=== PATIENT | female | born 1985 | race Caucasian/White ===

== ENCOUNTER → 2020-07-30 11:33 | Outpatient (CLI) | payer SELFPAY ==
[2020-07-30 13:31] LABS: Absolute Lymphocyte Count 1.46 X10^3/uL (0.83-4.51); Absolute Neutrophil Count 6.1 X10^3/uL (2.0-7.7); Basophil# 0.03 X10^3/uL; Basophil% 0.4 % (0-1); Eosinophil# 0.02 X10^3/uL; Eosinophils% 0.2 % (0-5); Hematocrit 38.3 % (37-47); Hemoglobin 12.8 g/dL (12.0-15.0); Lymphocyte # 1.46 X10^3/ul (4.0); Lymphocyte % 18.1 % (19-41); Mean Corp Hgb Conc 33.4 g/dL (32-36); Mean Corpuscular Hgb 29.4 pg (27.0-32.0); Mean Corpuscular Volume 87.8 fL (81-99); Mean Platelet Vol. 10.4 fl (6.2-12.0); Monocyte# 0.46 X10^3/uL; Monocyte% 5.7 % (0-10); NRBC Flagged by Analyzer 0 % (0-5); Neutrophil # 6.09 X10^3/uL (2.7-7.7); Neutrophil % 75.4 % (47-70); Platelet Count 271 K/mm3 (150-450); RBC Distribution Width CV 12.1 % (11.6-14.6); RBC Distribution Width SD 38.7 fl (35.1-43.9); Red Blood Count 4.36 M/mm3 (4.2-5.4); White Blood Count 8.1 K/mm3 (4.4-11.0)
[2020-07-30 13:36] LABS: Color, Urine Yellow (Yellow); Glucose, Dipstick Normal (Normal); Ketone-Dipstick Negative (Negative); Leukocyte Esterase-Dipstick Negative /ul (Negative); Nitrite-Dipstick Negative (Negative); Occult Blood-Urine Negative /ul (Negative); Protein-Dipstick Negative (Negative); Specific Gravity, Urine 1.015 (1.002-1.030); Urine Bilirubin Dipstick Negative (Negative); Urine Clarity Sl. Cloudy (Clear); Urine Urobilinogen Normal (Normal)
[2020-07-30 14:28] LABS: HIV - WCH Non-Reactive (Nonreactive); Hepatitis B Surface Antigen Non-Reactive (Nonreactive); Hepatitis C Antibody Non-Reactive (Nonreactive); Rubella IgG Reactive (Nonreactive)
[2020-08-01 20:09] LABS: Chlamydia By Nucleic Acid AMP Negative (Negative)
[2020-08-01 21:07] LABS: HPV APTIMA, High Risk Negative (Negative)
[2020-08-01 21:44] LABS: Gonococcus By Nucleic Acid AMP Negative (Negative)
[2020-08-02 02:34] LABS: Prenatal RPR NONREACTIVE (NONREACTIVE)
== END ==
PROVIDERS: Visit Provider Student in an Organized Health Care Education/Training Program
DX: Z34.81 Encounter for supervision of other normal pregnancy, first trimester (principal); Z12.4 Encounter for screening for malignant neoplasm of cervix; Z11.3 Encounter for screening for infections with a predominantly sexual mode of transmission
CPT/HCPCS: 36415; 81002; 85025; 86703; 86762; 86803; 87086; 87340; 87491; 87591; 87624; 88175; G0145

== ENCOUNTER → 2020-11-05 10:48 | Outpatient (CLI) | payer SELFPAY ==
[2020-11-05 13:18] LABS: Hematocrit 36.8 % (37-47); Hemoglobin 11.8 g/dL (12.0-15.0); Mean Corp Hgb Conc 32.1 g/dL (32-36); Mean Corpuscular Hgb 29.3 pg (27.0-32.0); Mean Corpuscular Volume 91.3 fL (81-99); Mean Platelet Vol. 10.1 fl (6.2-12.0); Platelet Count 287 K/mm3 (150-450); RBC Distribution Width CV 13.1 % (11.6-14.6); RBC Distribution Width SD 43.8 fl (35.1-43.9); Red Blood Count 4.03 M/mm3 (4.2-5.4); White Blood Count 9.7 K/mm3 (4.4-11.0)
[2020-11-05 13:24] LABS: Glucose Challenge Gest 1H 50g 74 mg/dL (70-140)
== END ==
PROVIDERS: Visit Provider Student in an Organized Health Care Education/Training Program
DX: Z34.82 Encounter for supervision of other normal pregnancy, second trimester (principal)
CPT/HCPCS: 36415; 82950; 85027

== ENCOUNTER → 2021-01-29 | Outpatient (CLI) | payer SELFPAY | END | disposition home or self-care (01) | LOC: LABSPEC 12:28 | PROVIDERS: PCP Physician Assistant; Visit Provider Student in an Organized Health Care Education/Training Program | DX: Z36.85 Encounter for antenatal screening for Streptococcus B (principal) | CPT/HCPCS: 87081 ==

== ENCOUNTER 2021-02-20 05:05 | Inpatient (IN) | payer SELFPAY ==
[2021-02-20] VITALS (16 sets, daily range): BP systolic 99–140; BP diastolic 54–89; PULSE 81–100; RESP 15–20; TEMP 36.1–36.8; O2SAT 94–98; BMI 34.7
--- NOTE | 2021-02-20 | FALS_PTH ---
PATIENT: DIANA MATAMOROS LOC: [facility] U#:[id number] AGE/SX: 35/F ROOM: [facility] RE02/20/[address]: Dr. Martha Saxena, : 1985 BED: 1 DIS: 02/22/2021 SPEC #: [id number] RECD: 02/20/21 12:00 STATUS: HENRIETTA CAMPOS #: [id number] MINNA: 02/20/21 00:[address]: Martha Saxena DEPT: SURGICAL PATHOLOGY RECD BY: Tyrone Alvares ENTERED: 02/20/21 12:01 SP TYPE: FALL TUBES OTHR DR: NOLAN Shay Tissues: Fallopian tube Procedures: Surgery Specimen Level II HEADER OPERATION: Tubal ligation PRE-OP DIAGNOSIS: Sterilization TISSUE SUBMITTED: Fallopian tubes MICROSCOPIC DIAGNOSIS Bilateral fallopian tubes, salpingectomy: Bilateral fallopian tubes, no pathologic diagnosis. SHIRAZ:carolyne 02/21/2021 MICROSCOPIC DESCRIPTION Slides are reviewed. GROSS DESCRIPTION Received in fixative is one container labeled with the patient's name and designated bilateral fallopian tubes, stitch left. The specimen consists of bilateral fallopian tubes including fimbrial ends. The right fallopian tube measures 6.5 cm in length and up to 1 cm in diameter and left fallopian tube measures 7 cm in length and up to 1 cm in diameter. Sections reveal unremarkable cut surfaces. Sausage Wrapper sections are submitted in two cassettes as follows: 1 ? right fallopian tube, 2 ? left fallopian tube. / SHIRAZ:carolyne 02/20/21 TC:4 CPT: 56299 x2
[2021-02-20] MEDS: Lactated Ringers 1,000 ML 999 ML IV (05:30)
[2021-02-20 05:39] LABS: Absolute Lymphocyte Count 1.77 X10^3/uL (0.83-4.51); Absolute Neutrophil Count 6.3 X10^3/uL (2.0-7.7); Basophil# 0.03 X10^3/uL; Basophil% 0.3 % (0-1); Eosinophil# 0.03 X10^3/uL; Eosinophils% 0.3 % (0-5); Hematocrit 37.5 % (37-47); Hemoglobin 12.6 g/dL (12.0-15.0); Lymphocyte # 1.77 X10^3/ul (0.83-4.51); Lymphocyte % 20.5 % (19-41); Mean Corp Hgb Conc 33.6 g/dL (32-36); Mean Corpuscular Hgb 29.2 pg (27.0-32.0); Mean Corpuscular Volume 86.8 fL (81-99); Mean Platelet Vol. 11.1 fl (6.2-12.0); Monocyte# 0.48 X10^3/uL; Monocyte% 5.6 % (0-10); NRBC Flagged by Analyzer 0 % (0-5); Neutrophil % 73.1 % (47-70); Platelet Count 232 K/mm3 (150-450); RBC Distribution Width CV 13.9 % (11.6-14.6); Red Blood Count 4.32 M/mm3 (4.2-5.4); White Blood Count 8.6 K/mm3 (4.4-11.0)
[2021-02-20] MEDS: Acetaminophen 500 MG Tablet 1000 MG PO ×3 (06:02→20:42)
[2021-02-20] MEDS: Lactated Ringers 1,000 ML 150 ML IV (06:35)
[2021-02-20] MEDS: Sodium Citrate/Citric Acid 30 ML UDC PO (07:12)
--- NOTE | 2021-02-20 07:13 | PCM.HP.OB ---
HPI - General General Date of Admission: 02/20/21 HPI Narrative 35 yo at 39/3w, LONG 02/24/21 by LMP, admitted for repeat section and bilateral tubal ligation. Denies leaking fluid, vaginal bleeding, contractions. Reports movement. Denies headache, vision changes, chest pain, shortness of breath, nausea or vomiting, diarrhea or constipation, fevers or chills. complicated by: Advanced maternal age PFSH PFSH Home Medications doxylamine succinate [Unisom (doxylamine)] 12.5 mg PO PRN PRN 02/20/21 [History Last Taken 02/18/21 21:00] [id number] [] 1 tab PO DAILY 02/20/21 [History Last Taken 02/19/21 21:00] Allergy/AdvReac Type Severity Reaction Status Date / Time No Known Allergies Allergy Verified 02/20/21 05:23 Surgical History Previous section Social History (Updated 02/20/21 @ 07:[address] Martha Saxena, ) Smoking Status: Never smoker alcohol intake: never substance use type: does not use History 4 Elective abortions Hx Para 2 Spontaneous abortions 1 Hx # Term Pregnancies 2 Ectopic pregnancies Hx # Pregnancies Multiple births # of living children ROS Constitutional Constitutional: Reports systems reviewed and no addt'l complaints, except as documented Eyes Eyes: Reports systems reviewed and no addt'l complaints, except as documented ENT HEENT: Reports systems reviewed and no addt'l complaints, except as documented Cardiovascular Cardiovascular: Reports systems reviewed and no addt'l complaints, except as documented Respiratory/Chest Respiratory/Chest: Reports systems reviewed and no addt'l complaints, except as documented Gastrointestinal Gastrointestinal: Reports systems reviewed and no addt'l complaints, except as documented Genitourinary Genitourinary: Reports systems reviewed and no addt'l complaints, except as documented Musculoskeletal Musculoskeletal: Reports systems reviewed and no addt'l complaints, except as documented Integumentary Integumentary: Reports systems reviewed and no addt'l complaints, except as documented Neurologic Neurologic: Reports systems reviewed and no addt'l complaints, except as documented Psychiatric Psychiatric: Reports systems reviewed and no addt'l complaints, except as documented Endocrine Endocrinology: Reports systems reviewed and no addt'l complaints, except as documented Hematologic/Lymphatic Hematologic/Lymphatic: Reports systems reviewed and no addt'l complaints, except as documented Allergic/Immunologic Allergic/Immunologic: Reports systems reviewed and no addt'l complaints, except as documented Vital Signs Vital Signs Vital Signs: 02/20/21 05:47 Temperature 98.2 F Temperature Source Temporal Pulse Rate 100 Respiratory Rate 18 Blood Pressure 140/89 H Blood Pressure Mean 106 Blood Pressure Source Monitor Blood Pressure Position Semi-Fowlers Blood Pressure Location Left Arm Pulse Ox 97 Oxygen Delivery Method Room Air Weight Weight: 88.904 kg Body Mass Index (BMI) 34.7 Physical Exam Const alert, oriented x3 and no apparent distress HEENT normocephalic Head and Scalp: atraumatic Eyes PERRL Neck full ROM Resp normal respiratory effort and clear to auscultation bilaterally Cardio regular rate and regular rhythm GI normal to inspection, nondistended, normoactive bowel sounds Inspection: gravid Extremity no pedal edema Skin no rashes or lesions noted Neuro no focal motor deficits and no sensory deficits noted Psych mental status grossly normal and affect normal Labs Labs Labs: Blood Type A POSITIVE Antibody Screen NEGATIVE Hct 37.5 % (37-47) Hgb 12.6 g/dL (12.0-15.0) Rubella IgG Antibody Reactive (Nonreactive) Hep Bs Antigen Non-Reactive (Nonreactive) Neisseria gonorrhoeae DNA (ELIO) Negative (Negative) HIV 1&2 Antibody Non-Reactive (Nonreactive) Glucose 1 Hr 50 gm 74 mg/dL (70-140) Assessment & Plan (1) : PLAN: 35-year-old G4, P2 at 39/3 weeks admitted for repeat section bilateral tubal ligation. Complicated by advanced maternal age. Routine orders. (2) Advanced maternal age (AMA) in :
[2021-02-20] MEDS: Cefazolin 2 GM in 0.9% Normal Saline 100 ML IV (07:21)
--- NOTE | 2021-02-20 08:33 | OP.PCM_ITS ---
Details Operative Information Date of Procedure: 02/20/21 Pre-Operative Diagnosis: Suh intrauterine , Desires permanent sterilization Post-Operative Diagnosis: Suh intrauterine , Desires permanent sterilization Indications Narrative: 35-year-old G4, P2 for repeat section and bilateral tubal ligation. All risk, benefits, alternatives were discussed with patient. Risks include but are not limited to: Risk of bleeding to the point of transfusion, infection, injury to surrounding tissue including bowel or bladder, VTE, ICU admission. Additionally risk of regret with tubal sterilization. Patient aware and consented. Classification: Scheduled Antibiotic Given: Ancef 2 grams IV x1 Estimated Blood Loss: 700cc Fluids Replaced: 1000cc Findings Description of Procedure: Patient taken to operating room spinal anesthesia placed. Patient placed in supine position with a left lateral tilt. Pfannenstiel skin incision made with scalpel and carried down through subcutaneous tissue. Fascia nicked on either side of the midline, extended bilaterally. Separation of rectus muscle noted inferiorly with herniation of peritoneum. Melanie clamps placed on the superior fascial edge which was tented up and underlying rectus muscles were dissected off bluntly and sharply at midline using Gomez scissors. Melanie clamps moved to inferior fascial edge which was tented up and underlying muscles were dissected off in a similar fashion, taking care to avoid adhesions. Hemostats grasped peritoneum superiorly and peritoneum entered with Metzenbaum scissors. Dissected inferiorly using Metzenbaum scissors. Extended bluntly. Bladder blade placed. Vesicouterine peritoneum identified and bladder flap created with Metzenbaum scissors. Low transverse uterine incision made with scalpel, uterine cavity entered bluntly and extended, meconium fluid. Hand placed into the uterus and had elevated, with the assistance of gentle fundal pressure head delivered followed by body. Nuchal cord x1 loose, reduced. Cord clamped and cut, baby handed to nursing. Manual extraction of placenta. Uterus exteriorized and cleared of all clots with a lap. Hysterotomy closed with a running locking stitch second vertical imbricating stitch, 1 [id number]-pt-lsivh placed for hemostasis. Right fallopian tube identified From cornua to fimbriated end grasped with 2 [place] clamps. Removed using LigaSure device. Hemostatic. Left fallopian tube grasped with Mylene clamps and removed with LigaSure device, hemostatic. Uterus replaced into the abdominal cavity, hysterotomy hemostatic. Peritoneum closed with a running stitch. Fascia closed with running stitch. Subcutaneous tissue closed with interrupted stitches. Skin closed with running subcuticular stitch. At the end of the procedure all needle, lap, sponge counts were correct x3. UOP: 250cc clear urine Specimen(s) Sent to Pathology: None (1 minute): 8 (5 minute): 9 Complications Complications: None
--- NOTE | 2021-02-20 08:41 | PCM.DC ---
Discharge Instructions Diet Discharge Diet: No restrictions Activity Discharge Activity: Return to Normal Activity and May Shower May resume sexual activity in: 4-6 weeks Weight Bearing Status: Weight bearing as tolerated Lifting Restrictions: 20-25 lb Dressing / Incision Call your doctor if your incision/area has: Continuous Slow Oozing and Increased Redness Call your doctor if you observe: Fever of 101 or Higher, Inability to urinate, Using more than 1 pad per hour, Shortness of breath, Dizziness, Fainting spells, Swelling in the ankles, Chest pain and Calf discomfort Remove Dressing in: 5 days Cleanse incision/area with: Soap & Water Follow Up Care Please Follow Up With: Martha Saxena DO When: 2 week telehealth, 6 week Test Results: Test results from this visit will be discussed in further detail at your follow-up appointment, if applicable. Discharge Plan Admission Admit Date/Time: 02/20/21 05:05 Attending Provider: Martha Saxena Primary Care Provider: Alina Ibarra Discharge Orders/Prescriptions Prescriptions: New oxycodone 5 mg Tablet 5 mg PO Q6H PRN (Reason: pain) 5 Days Qty: 20 RF: 0 Continued ejaltowm-clb-Jd-FA 1 mg Tablet 1 tab PO DAILY RF: 0 Discontinued Unisom (doxylamine) 25 mg Tablet 12.5 mg PO PRN PRN (Reason: nausea) RF: 0 Referrals / Follow Up: Alina Ibarra PA [Primary Care Provider] - Disposition Disposition (needs filled in before D/C Order can be placed): Home, Self Care
[2021-02-20] MEDS: Oxytocin 30 units/NS 500 ml 30 UNITS/500 ML IV.SOLN 167 UNITS IV (08:55)
[2021-02-20] MEDS: Ketorolac 30 MG/ML Syringe IV ×3 (09:27→20:42)
[2021-02-20] MEDS: 0.9% Saline Lock 10 ML Syringe IV (09:29)
[2021-02-20 09:50] LABS: Pathology Specimen OB SEE PATHOLOGY REPORT
--- NOTE | 2021-02-20 09:51 | NURSING ---
[id number]
[2021-02-20] MEDS: Lactated Ringers 1,000 ML 100 ML IV (12:02)
[2021-02-20] MEDS: Ondansetron 4 MG/2 ML Vial IV (12:14)
--- NOTE | 2021-02-20 19:20 | NURSING ---
Lopez still in at this time, along with IV fluids running due to concentrated urine and earlier vomiting. Tolerating po fluids at this time denies nausea. Shift report given to Petra DOTY
[2021-02-20] MEDS: Enoxaparin 40 MG/0.4 ML Syringe SC (20:41)
[2021-02-21 00:08] VITALS: BP 92/42; PULSE 77; RESP 18; O2SAT 95
[2021-02-21] MEDS: Acetaminophen 500 MG Tablet 1000 MG PO ×4 (02:26→20:21)
[2021-02-21] MEDS: Ketorolac 30 MG/ML Syringe IV (02:26)
[2021-02-21 05:00] VITALS: BP 107/53; PULSE 87; RESP 18; TEMP 36.4
[2021-02-21 05:26] LABS: Hematocrit 30.5 % (37-47); Hemoglobin 10.2 g/dL (12.0-15.0); Mean Corp Hgb Conc 33.4 g/dL (32-36); Mean Corpuscular Hgb 29.6 pg (27.0-32.0); Mean Corpuscular Volume 88.4 fL (81-99); Mean Platelet Vol. 10.2 fl (6.2-12.0); Platelet Count 218 K/mm3 (150-450); RBC Distribution Width CV 14.3 % (11.6-14.6); RBC Distribution Width SD 45.5 fl (35.1-43.9); Red Blood Count 3.45 M/mm3 (4.2-5.4); White Blood Count 13.7 K/mm3 (4.4-11.0)
--- NOTE | 2021-02-21 06:42 | PCM.PN.OB ---
Subjective Subjective She is sore and has painfulness with transferring. OOB, ambulating and voiding without difficulty. Passing flatus. Tolerates PO. Denies heavy lochia. She is . Objective Data Objective Data Vital Signs: Vital Signs Temp Pulse Resp BP Pulse Ox 96.9 F L 82 16 119/76 98 02/22/21 11:52 02/22/21 11:52 02/22/21 11:52 02/22/21 11:52 02/22/21 07:53 Oxygen Delivery Method Room Air Weight: 88.904 kg Body Mass Index (BMI) 34.7 Intake & Output: Intake and Output for Last 24 Hours 02/20/21 02/21/21 02/22/21 23:59 23:59 23:59 Intake Total 4060 / 4060 Output Total 800 / 1300 1900 / 1900 Balance 3260 / 2760 -1900 / -1900 Lab / Micro Data Result Diagrams: 02/21/21 05:10 Micro: Microbiology 02/20/21 05:30 Mucosa - Nose SARS-CoV-2 Antigen (Rapid) - Final Physical Exam Const alert, oriented x3 and no apparent distress Resp normal respiratory effort, normal air movement and clear to auscultation bilaterally Cardio regular rate, regular rhythm, S1 normal heart sound and S2 normal heart sound GI normal to inspection, nondistended, normoactive bowel sounds, soft to palpation, non-tender and non-distended GI Narrative: incisional dressing c/d/i Manual OB Exam: other lochia scant Uterus Palpation: uterus fundus firm Extremity no calf tenderness Assessment & Plan (1) Delivery by section: COMMENT: POD#1 s/p RLTCS PLAN: Routine postop care
[2021-02-21 07:35] VITALS: BP 107/48; PULSE 86; RESP 16; TEMP 36.2; O2SAT 97
[2021-02-21] MEDS: Senna/Docusate Sodium 1 Tablet PO (07:49)
[2021-02-21] MEDS: Ibuprofen 600 MG Tablet PO ×2 (12:06→17:40)
[2021-02-21 12:10] VITALS: BP 118/72; PULSE 88; RESP 18; TEMP 36.4; O2SAT 98
[2021-02-21 16:59] VITALS: BP 116/68; PULSE 82; RESP 16; TEMP 36.4; O2SAT 96
[2021-02-21 20:15] VITALS: BP 118/70; PULSE 89; RESP 18; TEMP 36.2; O2SAT 98
[2021-02-21] MEDS: oxyCODONE 5 MG Tablet PO (21:19)
[2021-02-22] MEDS: Ibuprofen 600 MG Tablet PO ×3 (00:31→11:47)
[2021-02-22] MEDS: Acetaminophen 500 MG Tablet 1000 MG PO ×2 (01:40→08:09)
[2021-02-22] MEDS: oxyCODONE 5 MG Tablet PO ×2 (02:32→08:09)
[2021-02-22 02:34] VITALS: BP 109/73; PULSE 73; RESP 18; TEMP 36.1
[2021-02-22 07:53] VITALS: BP 127/65; PULSE 77; RESP 16; TEMP 36.2; O2SAT 98
--- NOTE | 2021-02-22 09:06 | PCM.DC.SUM ---
Providers Date of Admission: 02/20/21 Primary Care Physician: NOLAN Shay Reason For Visit: REPEAT Diagnosis Discharge Diagnosis (1) Delivery by section: Status: Acute Medications at Discharge Home Medications oxycodone 5 mg PO Q6H PRN 5 Days #20 tab 02/20/21 pzruikqn-fcb-Ry-FA 1 tab PO DAILY 02/20/21 ibuprofen 600 mg PO Q8H PRN PRN #30 tab 02/22/21 Hospital Course Operations section Physical Exam Const alert, oriented x3 and no apparent distress Resp normal respiratory effort, normal air movement and clear to auscultation bilaterally Cardio regular rate, regular rhythm, S1 normal heart sound and S2 normal heart sound GI normal to inspection, nondistended, normoactive bowel sounds, soft to palpation, non-tender and non-distended Manual OB Exam: other lochia scant Uterus Palpation: uterus fundus firm Extremity no calf tenderness Extremity Narrative: trace LE edema Weight / BMI Weight Weight: 88.904 kg Body Mass Index (BMI) 34.7 ABG / Lab / Microbiology Data Result Diagrams: 02/21/21 05:10 Microbiology: Microbiology 02/20/21 05:30 Mucosa - Nose SARS-CoV-2 Antigen (Rapid) - Final D/C Instructions Discharge Diet: No restrictions May resume sexual activity in: 4-6 weeks Weight Bearing Status: Weight bearing as tolerated Call your doctor if your incision/area has: Continuous Slow Oozing and Increased Redness Call your doctor if you observe: Fever of 101 or Higher, Inability to urinate, Using more than 1 pad per hour, Shortness of breath, Dizziness, Fainting spells, Swelling in the ankles, Chest pain and Calf discomfort Cleanse incision/area with: Soap & Water Please Follow Up With: Martha Saxena, DO When: 2 week telehealth, 6 week Meaningful Use Info Meaningful Use Diagnoses (Choose all that apply): None applicable Discharge Plan Admission Admit Date/Time: 02/20/21 05:05 Primary Reason for Your Visit: section Attending Provider: Martha Saxena Primary Care Provider: Alina Ibarra Instructions Patient Instructions: C Section Dc Discharge Orders/Prescriptions Prescriptions: New oxycodone 5 mg Tablet 5 mg PO Q6H PRN (Reason: pain) 5 Days Qty: 20 RF: 0 ibuprofen 600 mg Tablet 600 mg PO Q8H PRN PRN (Reason: pain) Qty: 30 RF: 0 Continued fxguixdf-tei-Gi-FA 1 mg Tablet 1 tab PO DAILY RF: 0 Discontinued Unisom (doxylamine) 25 mg Tablet 12.5 mg PO PRN PRN (Reason: nausea) RF: 0 Referrals / Follow Up: Alina Ibarra PA [Primary Care Provider] - Disposition Disposition (needs filled in before D/C Order can be placed): Home, Self Care
[2021-02-22] MEDS: Enoxaparin 40 MG/0.4 ML Syringe SC (11:47)
[2021-02-22] MEDS: Senna/Docusate Sodium 1 Tablet PO (11:48)
[2021-02-22 11:52] VITALS: BP 119/76; PULSE 82; RESP 16; TEMP 36.1
== END 2021-02-22 12:10 | disposition home or self-care (01) | DRG 785 ==
PROVIDERS: Admitting Provider Student in an Organized Health Care Education/Training Program; PCP Physician Assistant; Referring Provider Student in an Organized Health Care Education/Training Program; Visit Provider Student in an Organized Health Care Education/Training Program
PROC: 10D00Z1 Extraction of Products of Conception, Low, Open Approach (ICD-10-PCS; CPT 59514; principal; 2021-02-20 07:15)
DX: O65.5 Obstructed labor due to abnormality of maternal pelvic organs (principal); O34.211 Maternal care for low transverse scar from previous cesarean delivery; O69.81X0 Labor and delivery complicated by cord around neck, without compression, not applicable or unspecified; Z3A.39 39 weeks gestation of pregnancy; Z37.0 Single live birth; Z30.2 Encounter for sterilization
CPT/HCPCS: 85025; 85027; 86850; 86900; 86901; 87426; 88302; 99218; 99251; J7120; A4216; G0378; G0463; J2405

== ENCOUNTER 2021-02-24 17:25 | Inpatient (IN) | payer SELFPAY ==
[2021-02-20 05:22] VITALS: BMI 34.7
[2021-02-24] VITALS (85 sets, daily range): BP systolic 130–162; BP diastolic 68–90; PULSE 58–85; RESP 15–20; TEMP 36.6–36.9; O2SAT 85–100; BMI 32.5
[2021-02-24 16:53] LABS: Absolute Lymphocyte Count 0.95 X10^3/uL (0.83-4.51); Absolute Neutrophil Count 7.9 X10^3/uL (2.0-7.7); Basophil# 0.02 X10^3/uL; Basophil% 0.2 % (0-1); Eosinophil# 0.01 X10^3/uL; Eosinophils% 0.1 % (0-5); Hematocrit 33.7 % (37-47); Hemoglobin 11.4 g/dL (12.0-15.0); Lymphocyte # 0.95 X10^3/ul (0.83-4.51); Lymphocyte % 10.1 % (19-41); Mean Corp Hgb Conc 33.8 g/dL (32-36); Mean Corpuscular Hgb 29.5 pg (27.0-32.0); Mean Corpuscular Volume 87.1 fL (81-99); Mean Platelet Vol. 9.5 fl (6.2-12.0); Monocyte# 0.47 X10^3/uL; NRBC Flagged by Analyzer 0 % (0-5); Neutrophil # 7.92 X10^3/uL (2.7-7.7); Neutrophil % 84.3 % (47-70); Platelet Count 291 K/mm3 (150-450); RBC Distribution Width CV 13.8 % (11.6-14.6); RBC Distribution Width SD 44.2 fl (35.1-43.9); Red Blood Count 3.87 M/mm3 (4.2-5.4); White Blood Count 9.4 K/mm3 (4.4-11.0)
[2021-02-24 17:08] LABS: Bacteria 0 SEEN /hpf (None Seen); Mucous, Urine 0 SEEN /hpf (<or=2+)
[2021-02-24 17:10] LABS: ALB/GLOB Ratio 0.6 RATIO (0.9-2.4); AST(SGOT) 109 U/L (15-37); Alanine Aminotransfer ALT/SGPT 142 U/L (13-56); Albumin, Serum 2.6 g/dL (3.2-5.0); Alkaline Phosphatase 114 U/L (45-117); Amylase 32 U/L (25-115); Anion Gap 12 (5-15); BUN 46 mg/dL (7-18); BUN/Creat Ratio 11.6 RATIO (10-20); Calcium,Total 8.2 mg/dL (8.5-10.1); Chloride 107 mmol/L (98-107); Creatinine, Serum 3.96 mg/dL (0.55-1.02); EST Glomerular Filtration Rate 14 mL/min (>60); Est Glom Filt Rate - Afr Amer 16 mL/min (>60); Estimated Creatinine Clearance 16.25 ml/min; Globulin 4.1 g/dL (2.2-4.2); Glucose 93 mg/dL (74-106); Lipase 35 U/L (73-393); Potassium 4.2 mmol/L (3.5-5.1); Protein, Total 6.7 g/dL (6.4-8.2); Sodium Level 138 mmol/L (136-145)
[2021-02-24 17:12] LABS: Color, Urine Yellow (Yellow); Glucose, Dipstick Normal (Normal); Ketone-Dipstick Negative (Negative); Leukocyte Esterase-Dipstick 100 /ul (Negative); Nitrite-Dipstick Negative (Negative); Occult Blood-Urine 250 /ul (Negative); Protein-Dipstick 100 mg/dl (Negative); Urine Bilirubin Dipstick Negative (Negative); Urine Clarity Sl. Cloudy (Clear); Urine Urobilinogen Normal (Normal)
[2021-02-24 17:17] LABS: Red Blood Cells-Urine 5-10 SEEN /hpf (0-5); Squamous Epithelial Cells - UA 5-10 SEEN /hpf (5-10); White Blood Cells 5-10 SEEN /hpf (0-5)
--- NOTE | 2021-02-24 17:49 | HP.PCM.OB_ITS ---
History and Physical Date of Admission: 02/24/21
--- NOTE | 2021-02-24 17:49 | PCM.HP.BLA ---
History and Physical Date of Admission: 02/24/21
--- NOTE | 2021-02-24 18:05 | PCM.HP.OB ---
HPI - General General Date of Admission: 02/24/21 HPI Narrative DIANA MATAMOROS, is a 35 F who presents on POD#4 s/p RLTCS and bilateral salpinectomy with c/o headache, nausea and vomiting. She reports headache started yesterday and worsened around noon today. It was in the back of her head and radiating to the front. She vomited 3 times today and twice yesterday evening. She is sore at the site of her incision, but discontinued oxycodone yesterday. She last took Ibuprofen and Tylenol early this morning. Denies vision changes, shortness of breath, chest pain or upper abdominal pain. She has intermittent hematuria. Denies dysuria, urinary frequency, or urgency. PFSH PFSH Home Medications oxycodone 5 mg PO Q6H PRN 5 Days #20 tab 02/20/21 [Rx Last Taken 02/23/21 12:00] gplcnukv-hbm-Lr-FA 1 tab PO DAILY 02/20/21 [History Last Taken 02/19/21 21:00] ibuprofen 600 mg PO Q8H PRN PRN #30 tab 02/22/21 [Rx Last Taken 02/24/21 08:00] Allergy/AdvReac Type Severity Reaction Status Date / Time No Known Allergies Allergy Verified 02/20/21 05:23 Family History (Updated 02/24/21 @ 18:[address] Jennifer Epperson MD) Father CAD (coronary artery disease) Mother CAD (coronary artery disease) Surgical History (Updated 02/24/21 @ 21:[address] Jennifer Epperson MD) Delivery by section Previous section Social History (Updated 02/20/21 @ 07:[address] Martha Saxena, ) Smoking Status: Never smoker alcohol intake: never substance use type: does not use History 4 Elective abortions Hx Para 2 Spontaneous abortions 1 Hx # Term Pregnancies 2 Ectopic pregnancies Hx # Pregnancies Multiple births # of living children Vital Signs Vital Signs Vital Signs: 02/24/21 16:30 02/24/21 16:32 02/24/21 16:33 Temperature 98.2 F Temperature Source Temporal Pulse Rate 65 63 Blood Pressure 135/81 H BP Systolic 135 BP Diastolic 81 Pulse Ox 99 98 02/24/21 16:45 02/24/21 17:00 02/24/21 17:16 Temperature Temperature Source Pulse Rate 61 59 L 58 L Blood Pressure 146/90 H 130/82 H 162/74 H BP Systolic 146 130 162 BP Diastolic 90 82 74 Pulse Ox 02/24/21 17:30 Temperature Temperature Source Pulse Rate 64 Blood Pressure 143/77 H BP Systolic 143 BP Diastolic 77 Pulse Ox Weight Weight: 83.28 kg Body Mass Index (BMI) 32.5 Physical Exam Const alert, oriented x3 and no apparent distress HEENT normocephalic Resp normal respiratory effort, normal air movement and clear to auscultation bilaterally Cardio regular rate and regular rhythm GI normal to inspection, nondistended, normoactive bowel sounds, soft to palpation, non-tender and non-distended Narrative: bilateral CVA tenderness Neuro oriented x3 and deep tendon reflexes 2+ bilaterally Neuro Narrative: DTRs are brisk, 2 beat clonus bilaterally Labs Labs Potassium 4.2 mmol/L, Na 138 mmol/L, Cl 107 mmol/L, BUN 46 mg/dL, Cr 3.96 -> 4.11 mg/dL, CO2 19.0, Glucose 93 mg/dL, AST 109, ALT 142, TBili 0.5, T prot 6.7 g/dL, Albumin 2.6 g/dL wbc 9.4 k/mm3, Hgb 11.4 g/dL, Hct 33.7%, Plt 291 U/A - yellow, sl. cloudy, pH 6.0, SG 1.01, U prot 100, glucose normal, ketones negative, occult blood 250, nitrite neg, bilirubin neg, urobilinogen normal
[2021-02-24] MEDS: Lactated Ringers 1,000 ML 100 ML IV ×2 (18:09→22:45)
[2021-02-24] MEDS: Magnesium Sulfate 4gm/100mL 4 GM/100 ML IV.SOLN. IV (18:11)
[2021-02-24 18:33] LABS: Partial Thromboplast Time 26.8 Seconds (24.1-36.2); Prothrombin Time (Protime)PT. 12.7 SECONDS (11.7-14.9)
[2021-02-24] MEDS: Magnesium Sulfate 4gm/100mL 2 GM/50 ML IV.SOLN. IV (18:33)
[2021-02-24 18:40] LABS: Creatinine, Serum 4.11 mg/dL (0.55-1.02); EST Glomerular Filtration Rate 13 mL/min (>60); Est Glom Filt Rate - Afr Amer 16 mL/min (>60); Estimated Creatinine Clearance 15.65 ml/min
[2021-02-24] MEDS: Magnesium Sulfate 20 GM/500 ML BAG IV (18:47)
[2021-02-24] MEDS: oxyCODONE 5 MG Tablet PO (19:24)
[2021-02-24] MEDS: Ondansetron 4 MG/2 ML Vial IV (19:33)
[2021-02-24] MEDS: Labetalol 200 MG Tablet PO (21:09)
--- NOTE | 2021-02-24 21:20 | PCM.HP.BLA ---
History and Physical Date of Admission: 02/24/21 Author: Jennifer Epperson MD Last Saved at 02/24/21 21:03 HPI - General General Date of Admission: 02/24/21 HPI Kirk MATAMOROS, is a 35 F who presents on POD#4 s/p RLTCS and bilateral salpinectomy with c/o headache, nausea and vomiting. She reports headache started yesterday and worsened around noon today. It was in the back of her head and radiating to the front. She vomited 3 times today and twice yesterday evening. She is sore at the site of her incision, but discontinued oxycodone yesterday. She last took Ibuprofen and Tylenol early this morning. Denies vision changes, shortness of breath, chest pain or upper abdominal pain. She has intermittent hematuria. Denies dysuria, urinary frequency, or urgency. PFSH PFSH Home Medications oxycodone 5 mg PO Q6H PRN 5 Days #20 tab 02/20/21 [Rx Last Taken 02/23/21 12:00] vozrsafu-zmi-Fj-FA 1 tab PO DAILY 02/20/21 [History Last Taken 02/19/21 21:00] ibuprofen 600 mg PO Q8H PRN PRN #30 tab 02/22/21 [Rx Last Taken 02/24/21 08:00] Allergy/AdvReac Type Severity Reaction Status Date / Time No Known Allergies Allergy Verified 02/20/21 05:23 Family History (Updated 02/24/21 @ 18:[address] Jennifer Epperson MD) Father CAD (coronary artery disease) Mother CAD (coronary artery disease) Surgical History (Updated 02/24/21 @ 20:[address] Jennifer Epperson MD) Previous section Social History (Updated 02/20/21 @ 07:[address] Martha Saxena, ) Smoking Status: Never smoker alcohol intake: never substance use type: does not use History 4 Para 3 Fullterm 3 0 Ectopic 0 SAB 1 Elective Ab 0 Living 3 Vital Signs Vital Signs Vital Signs: 02/24/21 16:30 02/24/21 16:32 02/24/21 16:33 Temperature 98.2 F Temperature Source Temporal Pulse Rate 65 63 Blood Pressure 135/81 H BP Systolic 135 BP Diastolic 81 Pulse Ox 99 98 02/24/21 16:45 02/24/21 17:00 02/24/21 17:16 Temperature Temperature Source Pulse Rate 61 59 L 58 L Blood Pressure 146/90 H 130/82 H 162/74 H BP Systolic 146 130 162 BP Diastolic 90 82 74 Pulse Ox 02/24/21 17:30 Temperature Temperature Source Pulse Rate 64 Blood Pressure 143/77 H BP Systolic 143 BP Diastolic 77 Pulse Ox Weight Weight: 83.28 kg Body Mass Index (BMI) 32.5 Physical Exam Const alert, oriented x3 and no apparent distress HEENT normocephalic Resp normal respiratory effort, normal air movement and clear to auscultation bilaterally Cardio regular rate and regular rhythm GI normal to inspection, nondistended, normoactive bowel sounds, soft to palpation, non-tender and non-distended Narrative: bilateral CVA tenderness Neuro oriented x3 and deep tendon reflexes 2+ bilaterally Neuro Narrative: DTRs are brisk, 2 beat clonus bilaterally Labs Labs Labs: Blood Type A POSITIVE Antibody Screen NEGATIVE Hct 33.7 % (37-47) L Hgb 11.4 g/dL (12.0-15.0) L Rubella IgG Antibody Reactive (Nonreactive) Hep Bs Antigen Non-Reactive (Nonreactive) Neisseria gonorrhoeae DNA (ELIO) Negative (Negative) HIV 1&2 Antibody Non-Reactive (Nonreactive) Glucose 1 Hr 50 gm 74 mg/dL (70-140) Rhogam given: No
--- NOTE | 2021-02-24 21:23 | CT_ITS ---
We are attempting to reach an attending provider to discuss findings. An addendum with communication details will be sent when the communication is complete. HISTORY: r/o obstructive uropathy -- preeclampsia, rising Cr, CVA tenderness TECHNIQUE: Multiple axial images were obtained of the abdomen and pelvis without oral or IV contrast. Coronal and sagittal reformats obtained. A radiation dose optimization technique was used for this scan. COMPARISON: None FINDINGS: # of images incl. paperwork: [id number] LUNG BASES: Small bilateral pleural effusions. Mild smooth basilar septal thickening. LIVER T BILIARY TRACT: Gallbladder is well filled without surrounding inflammation. No acute hepatic finding. ADRENAL GLANDS: Unremarkable. SPLEEN: Unremarkable. PANCREAS: Unremarkable. KIDNEYS/URETERS/BLADDER: Mild bilateral hydronephrosis with dilated ureter extending to the level of the large Post gravid Uterus. No nephrolithiasis. Mild left greater than right perinephric stranding LYMPH NODES: No suspicious adenopathy. STOMACH, SMALL AND LARGE BOWEL: No acute gastric finding. No small bowel obstruction or gross wall thickening. Appendix is not seen. No right lower quadrant inflammatory change to suggest appendicitis. No acute colonic finding. Moderate proximal colonic stool. ASCITES/FREE AIR: No free fluid or free air. AORTA: Unremarkable. PELVIS: Unremarkable. MUSCULOSKELETAL: No acute osseous finding. CT/Abdomen/Pelvis without Cont IMPRESSION: Mild bilateral hydronephrosis with mild perinephric stranding. Dilated ureters extend to the level of the distended posterior uterus. Large post gravid uterus with thickened endometrial stripe containing hyperdense blood and scattered air. Correlate for retained products of conception or endometritis. Individualized dose optimization techniques were used for this CT. at 2340 Reported and signed by: Lucas Duffy MD Electronically Signed: Lucas Duffy MD at 23:39 EDT Tel , Service support ,
--- NOTE | 2021-02-24 22:09 | PN_ITS ---
Progress Note Last Saved at 02/24/21 22:02 HISTORY AND PHYSICAL DX. preeclampsia acute renal insufficiency HPI - General Date of Admission: 02/24/21 HPI Narrative DIANA MATAMOROS, is a 35 F who presents on POD#4 s/p RLTCS and bilateral salpinectomy with c/o headache, nausea and vomiting. She reports headache started yesterday and worsened around noon today. It was in the back of her head and radiating to the front. She vomited 3 times today and twice yesterday evening. She is sore at the site of her incision, but discontinued oxycodone yesterday. She last took Ibuprofen and Tylenol early this morning. Denies vision changes, shortness of breath, chest pain or upper abdominal pain. She has intermittent hematuria. Denies dysuria, urinary frequency, or urgency. PFSH PFSH Home Medications oxycodone 5 mg PO Q6H PRN 5 Days #20 tab 02/20/21 [Rx Last Taken 02/23/21 12:00] [id number] 1 tab PO DAILY 02/20/21 [History Last Taken 02/19/21 21:00] ibuprofen 600 mg PO Q8H PRN PRN #30 tab 02/22/21 [Rx Last Taken 02/24/21 08:00] Allergy/AdvReac Type Severity Reaction Status Date / Time No Known Allergies Allergy Verified 02/20/21 05:23 Family History (Updated 02/24/21 @ 18:[address] Jennifer Epperson MD) Father CAD (coronary artery disease) Mother CAD (coronary artery disease) Surgical History (Updated 02/24/21 @ 21:[address] Jennifer Epperson MD) section x 3, last on 02/20/21 Social History (Updated 02/20/21 @ 07:[address] Martha Saxena DO) Smoking Status: Never smoker alcohol intake: never substance use type: does not use History 4 para 3 - fullterm 3 0 SAB 1 Induced Ab 0 ectopic 0 living 3 Vital Signs Vital Signs Vital Signs: 02/24/21 16:30 02/24/21 16:32 02/24/21 16:33 Temperature 98.2 F Temperature Source Temporal Pulse Rate 65 63 Blood Pressure 135/81 H BP Systolic 135 BP Diastolic 81 Pulse Ox 99 98 02/24/21 16:45 02/24/21 17:00 02/24/21 17:16 Temperature Temperature Source Pulse Rate 61 59 L 58 L Blood Pressure 146/90 H 130/82 H 162/74 H BP Systolic 146 130 162 BP Diastolic 90 82 74 Pulse Ox 02/24/21 17:30 Temperature Temperature Source Pulse Rate 64 Blood Pressure 143/77 H BP Systolic 143 BP Diastolic 77 Pulse Ox Weight Weight: 83.28 kg Body Mass Index (BMI) 32.5 Physical Exam Const alert, oriented x3 and no apparent distress HEENT normocephalic Resp normal respiratory effort, normal air movement and clear to auscultation bilaterally Cardio regular rate and regular rhythm GI normal to inspection, nondistended, normoactive bowel sounds, soft to palpation, non-tender and non-distended Narrative: bilateral CVA tenderness Neuro oriented x3 and deep tendon reflexes 2+ bilaterally Neuro Narrative: DTRs are brisk, 2 beat clonus bilaterally LABS Potassium 4.2 mmol/L, Na 138 mmol/L, Cl 107 mmol/L, BUN 46 mg/dL, Cr 3.96 -> 4.11 mg/dL, CO2 19.0, Glucose 93 mg/dL, AST 109, ALT 142, TBili 0.5, T prot 6.7 g/dL, Albumin 2.6 g/dL wbc 9.4 k/mm3, Hgb 11.4 g/dL, Hct 33.7%, Plt 291 U/A - yellow, sl. cloudy, pH 6.0, SG 1.01, U prot 100, glucose normal, ketones negative, occult blood 250, nitrite neg, bilirubin neg, urobilinogen normal Assessment - preeclampsia with tranaminitis: Labetalol for HTN, Magnesium seizure prophylaxis. Labs q6h -Acute renal insufficiency : Elevated Cr with hematuria and flank pain. r/o o bstructive uropathy . CT A/P for suspected nephrolithiasis
[2021-02-24 23:08] LABS: Absolute Lymphocyte Count 1.45 X10^3/uL (0.83-4.51); Absolute Neutrophil Count 6.7 X10^3/uL (2.0-7.7); Basophil# 0.02 X10^3/uL; Basophil% 0.2 % (0-1); Eosinophil# 0.02 X10^3/uL; Eosinophils% 0.2 % (0-5); Hematocrit 32.9 % (37-47); Hemoglobin 10.9 g/dL (12.0-15.0); Lymphocyte # 1.45 X10^3/ul (0.83-4.51); Lymphocyte % 16.2 % (19-41); Mean Corp Hgb Conc 33.1 g/dL (32-36); Mean Corpuscular Hgb 29.1 pg (27.0-32.0); Mean Platelet Vol. 9.4 fl (6.2-12.0); Monocyte# 0.69 X10^3/uL; Monocyte% 7.7 % (0-10); NRBC Flagged by Analyzer 0 % (0-5); Neutrophil # 6.74 X10^3/uL (2.7-7.7); Neutrophil % 75.5 % (47-70); Platelet Count 277 K/mm3 (150-450); RBC Distribution Width CV 13.7 % (11.6-14.6); RBC Distribution Width SD 44.3 fl (35.1-43.9); Red Blood Count 3.74 M/mm3 (4.2-5.4); White Blood Count 8.9 K/mm3 (4.4-11.0)
[2021-02-24 23:24] LABS: ALB/GLOB Ratio 0.6 RATIO (0.9-2.4); AST(SGOT) 82 U/L (15-37); Alanine Aminotransfer ALT/SGPT 125 U/L (13-56); Albumin, Serum 2.4 g/dL (3.2-5.0); Alkaline Phosphatase 110 U/L (45-117); Anion Gap 14 (5-15); BUN 47 mg/dL (7-18); BUN/Creat Ratio 11.7 RATIO (10-20); Calcium,Total 8.3 mg/dL (8.5-10.1); Chloride 104 mmol/L (98-107); Creatinine, Serum 4.01 mg/dL (0.55-1.02); EST Glomerular Filtration Rate 13 mL/min (>60); Est Glom Filt Rate - Afr Amer 16 mL/min (>60); Estimated Creatinine Clearance 16.04 ml/min; Glucose 83 mg/dL (74-106); LDH 228 U/L (84-246); Potassium 3.8 mmol/L (3.5-5.1); Protein, Total 6.4 g/dL (6.4-8.2); Sodium Level 137 mmol/L (136-145)
[2021-02-25] VITALS (63 sets, daily range): BP systolic 112–163; BP diastolic 64–88; PULSE 68–80; RESP 15–20; TEMP 35.6–37.2; O2SAT 89–100
--- NOTE | 2021-02-25 00:10 | NURSING ---
Dr. Gardner reviewing CT report and lab results with this RN. Vital signs reviewed with provider, notified pt has had no elevated temperatures, pt c/o chills at 2400 assessment and this RN was going to take an oral temp but pt had just taken ice chips. Will assess temp at next assessment and let know. Plan to keep monitoring and will order a pelvic US for AM.
--- NOTE | 2021-02-25 00:12 | US_ITS ---
STUDY: ULTRASOUND OF THE FEMALE PELVIS - COMPLETE REASON FOR EXAM: Female, 35 years old. Pelvic pain and fullness, recent , possible retained POC LMP: TECHNIQUE: Transabdominal and Transvaginal TECHNICAL QUALITY: Adequate. COMPARISON: None. FINDINGS: The uterus is anteverted and is in a midline position. The uterus measures 19.3 x 12.3 x 7.5 cm. Normal uterine cervix. The endometrium measures 10 mm in thickness, and is heterogeneous and fluid distended. There is no demonstrated endometrial mass. There is no demonstrated myometrial mass. I.U.D. - The patient does not have an I.U.D. Neither ovary was visualized There is no fluid in the cul-de-sac. Bladder is sonographically normal Polycystic ovary disease: No. US/Pelvic (Non ) IMPRESSION: Enlarged uterus due to recent delivery. The endometrium is heterogeneous and fluid distended suggesting there is likely some retained POC. Short-term follow-up recommended to ensure passage. No suspicious adnexal mass or free fluid Electronically Signed: Evans Harding MD at 9:00 EDT , Service support ,
--- NOTE | 2021-02-25 01:03 | NURSING ---
Pt feeling very tired and weak. States has some tingling in feet. Discussed normal side effects with pt. Objectively pt presents as general malaise, some pallor, and warm to touch.
--- NOTE | 2021-02-25 01:10 | NURSING ---
notified of 0100 vitals with temp. states she ordered IV antibiotics and will continue to assess
--- NOTE | 2021-02-25 02:39 | NURSING ---
Assisted pt [id number] out of bed and attempted to walk to BR, pt felt lightheaded and dizzy, pt placed back in bed. Vitals obtained, WNL. Pt placed on bedpan for several minutes, but unable to void. Fundus is to the left and pt states feels bladder is full and is uncomfortable. Pt requested to use bedside commode. Assisted pt to bedside commode [id number], pt tolerated well, only able to void 50cc and pt states feels full bladder. called and notified of change in difficulty urinating and 50cc UO. Plan to place crandall catheter.
[2021-02-25] MEDS: Ceftriaxone 1 GM Vial IM (03:04)
[2021-02-25] MEDS: Magnesium Sulfate 20 GM/500 ML BAG IV (03:50)
[2021-02-25 05:29] LABS: Absolute Lymphocyte Count 1.09 X10^3/uL (0.83-4.51); Absolute Neutrophil Count 8.7 X10^3/uL (2.0-7.7); Basophil# 0.02 X10^3/uL; Basophil% 0.2 % (0-1); Hematocrit 34.8 % (37-47); Hemoglobin 11.5 g/dL (12.0-15.0); Lymphocyte # 1.09 X10^3/ul (0.83-4.51); Lymphocyte % 10.6 % (19-41); Mean Corpuscular Hgb 29.5 pg (27.0-32.0); Mean Corpuscular Volume 89.2 fL (81-99); Mean Platelet Vol. 9.5 fl (6.2-12.0); Monocyte# 0.43 X10^3/uL; Monocyte% 4.2 % (0-10); NRBC Flagged by Analyzer 0 % (0-5); Neutrophil # 8.69 X10^3/uL (2.7-7.7); Neutrophil % 84.6 % (47-70); Platelet Count 262 K/mm3 (150-450); RBC Distribution Width CV 13.5 % (11.6-14.6); RBC Distribution Width SD 44.1 fl (35.1-43.9); White Blood Count 10.3 K/mm3 (4.4-11.0)
[2021-02-25 05:45] LABS: ALB/GLOB Ratio 0.6 RATIO (0.9-2.4); AST(SGOT) 71 U/L (15-37); Alanine Aminotransfer ALT/SGPT 127 U/L (13-56); Albumin, Serum 2.5 g/dL (3.2-5.0); Alkaline Phosphatase 122 U/L (45-117); Anion Gap 16 (5-15); BUN 49 mg/dL (7-18); BUN/Creat Ratio 12.4 RATIO (10-20); Calcium,Total 8.6 mg/dL (8.5-10.1); Chloride 101 mmol/L (98-107); Creatinine, Serum 3.94 mg/dL (0.55-1.02); EST Glomerular Filtration Rate 14 mL/min (>60); Est Glom Filt Rate - Afr Amer 17 mL/min (>60); Estimated Creatinine Clearance 16.33 ml/min; Globulin 4.2 g/dL (2.2-4.2); Glucose 96 mg/dL (74-106); Potassium 4.2 mmol/L (3.5-5.1); Protein, Total 6.7 g/dL (6.4-8.2); Sodium Level 136 mmol/L (136-145)
--- NOTE | 2021-02-25 07:31 | US_ITS ---
STUDY: RENAL ULTRASOUND - COMPLETE REASON FOR EXAM: Female, 35 years old. Elevated BUN/creatinine TECHNIQUE: Ultrasound evaluation of the kidneys was performed with real-time and static cosby-scale imaging. COMPARISON: None. FINDINGS: RIGHT KIDNEY: Normal location of the right kidney, which is normal in size. The right kidney measures 13.8 x 6.4 x 5.2 cm. There is a normal cortex of the right kidney. The renal cortex measures 1.6 cm. There is no right renal mass or cyst. There are no right renal calculi. There is no right hydronephrosis, there are mildly dilated calyces. DISTAL RIGHT URETER: There is non-visualization of the distal right ureter. There is no demonstrated right ureterovesical junction calculus. There is a visualized right ureteral jet. LEFT KIDNEY: Normal location of the left kidney, which is normal in size. The left kidney measures 14.2 x 6.7 x 5.7 cm. There is a normal cortex of the left kidney. The renal cortex measures 1.6 cm. There is no left renal mass or cyst. There are no left renal calculi. There is no left hydronephrosis, there are mildly dilated calyces. DISTAL LEFT URETER: There is non-visualization of the distal left ureter. There is no demonstrated left ureterovesical junction calculus. There is a visualized left ureteral jet. AORTA: Not visualized I.V.C.: The IVC is patent. BLADDER: Bladder contains a IQBAL catheter US/Kidney and Bladder IMPRESSION: Mildly dilated calyces in both kidneys but no hydronephrosis or hydroureter. Electronically Signed: Evans Harding MD at 9:35 EDT , Service support ,
--- NOTE | 2021-02-25 07:38 | NURSING ---
notified of diminished reflexes, UO since crandall insertion. Plan of care updated at bs with pt, RN, and . Magnesium sulfate infusion decreased to 1g/hr per VO .
--- NOTE | 2021-02-25 08:16 | PCM.PROGNOTE ---
Subjective Subjective Reports feeling heavy. Denies nausea or vomiting. No headache, dark spots or flashing of light in the vision. REports blurred vision however. Pain is controlled. Objective Data Objective Data Vital Signs: Vital Signs Temp Pulse Resp BP Pulse Ox 99.0 F 71 20 H 142/71 H 93 02/25/21 06:11 02/25/21 07:11 02/25/21 06:59 02/25/21 06:59 02/25/21 07:11 Oxygen Delivery Method Room Air Weight: 83.28 kg Body Mass Index (BMI) 32.5 Intake & Output: Intake and Output for Last 24 Hours 02/23/21 02/24/21 02/25/21 23:59 23:59 23:59 Intake Total 1160 / 1160 1052.5 / 1052.5 Output Total 700 / 700 3050 / 3050 Balance 460 / 460 -1996. / -1996. Lab / Micro Data Result Diagrams: 02/25/21 05:20 02/25/21 05:20 Labs: Laboratory Results - last 24 hr 02/24/21 02/24/21 02/24/21 16:40 16:40 17:00 WBC 9.4 RBC 3.87 L Hgb 11.4 L Hct 33.7 L MCV 87.1 MCH 29.5 MCHC 33.8 RDW Std Deviation 44.2 H RDW Coeff of José Miguel 13.8 Plt Count 291 MPV 9.5 Immature Gran % (Auto) 0.300 Neut % (Auto) 84.3 H Lymph % (Auto) 10.1 L [place] % (Auto) 5.0 Eos % (Auto) 0.1 Baso % (Auto) 0.2 Absolute Neuts (auto) 7.9 H Absolute Lymphs (auto) 0.95 Nucleated RBC % 0 PT INR APTT Sodium 138 Potassium 4.2 Chloride 107 Carbon Dioxide 19.0 L Anion Gap 12 BUN 46 H Creatinine 3.96 H Estim Creat Clear Calc 16.25 Est GFR (MDRD) Af Amer 16 L Est GFR (MDRD) Non-Af 14 L BUN/Creatinine Ratio 11.6 Glucose 93 Calcium 8.2 L Total Bilirubin 0.50 AST 109 H ALT 142 H Alkaline Phosphatase 114 Lactate Dehydrogenase Total Protein 6.7 Albumin 2.6 L Globulin 4.1 Albumin/Globulin Ratio 0.6 L Amylase 32 Lipase 35 L Urine Color Yellow Urine Clarity Sl. Cloudy Urine pH 6.0 Ur Specific [place] 1.010 Urine Protein 100 H Urine Glucose (UA) Normal Urine Ketones Negative Urine Occult Blood 250 H Urine Nitrite Negative Urine Bilirubin Negative Urine Urobilinogen Normal Ur Leukocyte Esterase 100 H Urine RBC 5-10 SEEN Urine WBC 5-10 SEEN Ur Squamous Epith Cells 5-10 SEEN Urine Bacteria 0 SEEN Urine Mucus 0 SEEN Blood Type Antibody Screen 02/24/21 02/24/21 02/24/21 18:00 18:00 18:05 WBC RBC Hgb Hct MCV MCH MCHC RDW Std Deviation RDW Coeff of José Miguel Plt Count MPV Immature Gran % (Auto) Neut % (Auto) Lymph % (Auto) [place] % (Auto) Eos % (Auto) Baso % (Auto) Absolute Neuts (auto) Absolute Lymphs (auto) Nucleated RBC % PT 12.7 INR 1.0 APTT 26.8 Sodium Potassium Chloride Carbon Dioxide Anion Gap BUN Creatinine 4.11 H Estim Creat Clear Calc 15.65 Est GFR (MDRD) Af Amer 16 L Est GFR (MDRD) Non-Af 13 L BUN/Creatinine Ratio Glucose Calcium Total Bilirubin AST ALT Alkaline Phosphatase Lactate Dehydrogenase Total Protein Albumin Globulin Albumin/Globulin Ratio Amylase Lipase Urine Color Urine Clarity Urine pH Ur Specific [place] Urine Protein Urine Glucose (UA) Urine Ketones Urine Occult Blood Urine Nitrite Urine Bilirubin Urine Urobilinogen Ur Leukocyte Esterase Urine RBC Urine WBC Ur Squamous Epith Cells Urine Bacteria Urine Mucus Blood Type A POSITIVE Antibody Screen NEGATIVE 02/24/21 02/24/21 02/25/21 22:55 22:55 05:20 WBC 8.9 10.3 RBC 3.74 L 3.90 L Hgb 10.9 L 11.5 L Hct 32.9 L 34.8 L MCV 88.0 89.2 MCH 29.1 29.5 MCHC 33.1 33.0 RDW Std Deviation 44.3 H 44.1 H RDW Coeff of José Miguel 13.7 13.5 Plt Count 277 262 MPV 9.4 9.5 Immature Gran % (Auto) 0.200 0.400 Neut % (Auto) 75.5 H 84.6 H Lymph % (Auto) 16.2 L 10.6 L [place] % (Auto) 7.7 4.2 Eos % (Auto) 0.2 0.0 Baso % (Auto) 0.2 0.2 Absolute Neuts (auto) 6.7 8.7 H Absolute Lymphs (auto) 1.45 1.09 Nucleated RBC % 0 0 PT INR APTT Sodium 137 Potassium 3.8 Chloride 104 Carbon Dioxide 19.0 L Anion Gap 14 BUN 47 H Creatinine 4.01 H Estim Creat Clear Calc 16.04 Est GFR (MDRD) Af Amer 16 L Est GFR (MDRD) Non-Af 13 L BUN/Creatinine Ratio 11.7 Glucose 83 Calcium 8.3 L Total Bilirubin 0.50 AST 82 H ALT 125 H Alkaline Phosphatase 110 Lactate Dehydrogenase 228 Total Protein 6.4 Albumin 2.4 L Globulin 4.0 Albumin/Globulin Ratio 0.6 L Amylase Lipase Urine Color Urine Clarity Urine pH Ur Specific [place] Urine Protein Urine Glucose (UA) Urine Ketones Urine Occult Blood Urine Nitrite Urine Bilirubin Urine Urobilinogen Ur Leukocyte Esterase Urine RBC Urine WBC Ur Squamous Epith Cells Urine Bacteria Urine Mucus Blood Type Antibody Screen 02/25/21 05:20 WBC RBC Hgb Hct MCV MCH MCHC RDW Std Deviation RDW Coeff of José Miguel Plt Count MPV Immature Gran % (Auto) Neut % (Auto) Lymph % (Auto) [place] % (Auto) Eos % (Auto) Baso % (Auto) Absolute Neuts (auto) Absolute Lymphs (auto) Nucleated RBC % PT INR APTT Sodium 136 Potassium 4.2 Chloride 101 Carbon Dioxide 19.0 L Anion Gap 16 H BUN 49 H Creatinine 3.94 H Estim Creat Clear Calc 16.33 Est GFR (MDRD) Af Amer 17 L Est GFR (MDRD) Non-Af 14 L BUN/Creatinine Ratio 12.4 Glucose 96 Calcium 8.6 Total Bilirubin 0.50 AST 71 H ALT 127 H Alkaline Phosphatase 122 H Lactate Dehydrogenase Total Protein 6.7 Albumin 2.5 L Globulin 4.2 Albumin/Globulin Ratio 0.6 L Amylase Lipase Urine Color Urine Clarity Urine pH Ur Specific [place] Urine Protein Urine Glucose (UA) Urine Ketones Urine Occult Blood Urine Nitrite Urine Bilirubin Urine Urobilinogen Ur Leukocyte Esterase Urine RBC Urine WBC Ur Squamous Epith Cells Urine Bacteria Urine Mucus Blood Type Antibody Screen Radiography Diagnostic Testing: Radiology Impression Abdomen/Pelvis CT 02/24/21 21:23 IMPRESSION: Mild bilateral hydronephrosis with mild perinephric stranding. Dilated ureters extend to the level of the distended posterior uterus. Large post gravid uterus with thickened endometrial stripe containing hyperdense blood and scattered air. Correlate for retained products of conception or endometritis. Individualized dose optimization techniques were used for this CT. at 2340 Reported and signed by: Lucas Duffy MD Electronically Signed: Lucas Duffy MD at 23:39 EDT Tel , Service support , ADDENDUM: 02/24/21 2351 IMPRESSION: Mild bilateral hydronephrosis with mild perinephric stranding. Dilated ureters extend to the level of the distended posterior uterus. Large post gravid uterus with thickened endometrial stripe containing hyperdense blood and scattered air. Correlate for retained products of conception or endometritis. Individualized dose optimization techniques were used for this CT. at 2340 Reported and signed by: Lucas Duffy MD N.B. : The above Results were Read Back by Lucas Duffy MD to Coleen Garcias RN, and understanding confirmed on 02/24/2021 23:45:01 (ET). Electronically Signed: Lucas Duffy MD at 23:39 EDT Tel , Service support , Physical Exam Const alert, oriented x3 and no apparent distress General Appearance: cooperative and comfortable HEENT normocephalic Resp Auscultation: clear to auscultation bilaterally Cardio regular rate, regular rhythm, S1 normal heart sound and S2 normal heart sound GI normal to inspection, nondistended, normoactive bowel sounds, soft to palpation and non-tender GI Narrative: incisional dressing c/d/i OB / External & Speculum: other Uterus Palpation: other OB Fundus firm and nontender Extremity no calf tenderness Neuro Neuro Narrative: +1 b/l LE DTRs, no clonus
--- NOTE | 2021-02-25 08:38 | PCM.PN.BLA ---
Progress Note Subjective: Reports feeling heavy and tired on the magnesium. Denies headache, nausea, vomiting, chest pain, shortness of breath. Reports blurry vision. Denies dark spots or cluttering in vision. Reports pain around incision minimal. Objective Data Vital Signs: Vital Signs Temp Pulse Resp BP Pulse Ox 99.0 F 71 20 H 142/71 H 93 02/25/21 06:11 02/25/21 07:11 02/25/21 06:59 02/25/21 06:59 02/25/21 07:11 Oxygen Delivery Method Room Air Weight: 83.28 kg Body Mass Index (BMI) 32.5 Intake & Output:Intake and Output for Last 24 Hours 02/23/21 02/24/21 02/25/21 23:59 23:59 23:59 Intake Total 1160 / 1160 1052.5 / 1052.5 Output Total 700 / 700 3050 / 3050 Balance 460 / 460 -1996. Exam General appears lethargic, responds to commands and questions, alert and oriented x3, no acute distress HEENT atraumatic, normocephalic Cardiovascular regular rate and rhythm Pulmonary lungs clear to auscultation bilaterally Abdomen soft, nontender, nondistended, fundus firm and nontender, incision clean, dry and intact and well approximated, no CVA tenderness Extremities trace lower extremity edema bilaterally, no calf tenderness Neuro no clonus, +1 bilateral lower extremity DTRs Intake & Output:Intake and Output for Last 24 Hours 02/23/21 02/24/21 02/25/21 23:59 23:59 23:59 Intake Total 1160 / 1160 1052.5 / 1052.5 Output Total 700 / 700 3050 / 3050 Balance 460 / 460 -1996.. Labs 02/25/2021 approximately 6 AM Potassium 4.2 mmol/L Sodium 136 mmol/L Chloride 101 mmol/L BUN 49 mg/ deciliter Creatinine 3.94 mg/dL Carbon dioxide 19 mmol/L Glucose 96 mg/dL AST 71 ALT 127 T bili 0.5 mg/dL Total protein 6.[address] of the abdomen pelvis without contrast from 02/24/2021: Significant for bilateral mild hydronephrosis and perinephric stranding, thickened endometrium with hypodense blood and air within the uterine cavity. No signs of urinary stones or intra-abdominal pathology Assessment 35-year-old 4 para 3-0-1-3 postop day #5 status post uncomplicated repeat section admitted with Plan: #1 preeclampsia with severe features IV magnesium infusion reduced to 1 g/h given acute renal insufficiency Continue use labetalol for elevated blood pressures Repeat labs every 6 hours DVT prophylaxis #2 acute renal insufficiency Patient with oliguria overnight. Lopez catheter placed with evidence of urinary retention and copious urine output. Creatinine remains elevated. Rule out ATN or nephropathy. Hospitalist and nephrology consultation placed. Dr. Robles and Dr. Polo verbally notified. #3 section delivered Incisional dressing removed Breast-feeding, pumping #4 pyelonephritis Patient without urinary complaints, however given CVA tenderness and perinephric stranding given antibiotics with resolution of CVA tenderness. Status post IM ceftriaxone x1 (patient refused IV medication as a second IV was required due to incompatibility with magnesium infusion). Augmentin twice daily
[2021-02-25] MEDS: Lactated Ringers 1,000 ML 100 ML IV (08:52)
[2021-02-25 09:38] LABS: Protein, Urine (Random) 8.1 mg/dL (<11.9)
[2021-02-25 09:42] LABS: Creatinine, Urine (random) < 13.00 mg/dL (NO RANGE EST.); Urine Chloride 84 mmol/L (Not Establ.); Urine Sodium 93 mmol/L (Not Establ.)
[2021-02-25] MEDS: Enoxaparin 30 MG/0.3 ML Syringe SC (10:21)
[2021-02-25] MEDS: Labetalol 200 MG Tablet PO ×2 (10:21→22:26)
[2021-02-25 10:27] LABS: Magnesium 12.5 mg/dL (1.6-2.6)
--- NOTE | 2021-02-25 10:37 | NURSING ---
at 10am, Assisted patient in double pumping breasts for 20min. Patient was feeling too ill to hold pump in place herself. RN & IBCLC held pumps in place. Father aware of pumping plan every 3hrs for 20mins. Almost 60mls of breastmilk was collected, labeled, and stored in fridge
--- NOTE | 2021-02-25 10:57 | PCM.PN.OB ---
Subjective Subjective Patient seen and examined. Feeling weak and nauseous. Right upper quadrant pain. Denies shortness of breath, chest pain. Pain well controlled. Minimal vaginal bleeding. Headache now resolved. Objective Data Objective Data Vital Signs: Vital Signs Temp Pulse Resp BP Pulse Ox 97.6 F L 71 16 146/82 H 98 02/25/21 10:19 02/25/21 10:42 02/25/21 10:19 02/25/21 10:35 02/25/21 10:42 Oxygen Delivery Method Room Air Weight: 183 lb 9.6 oz Body Mass Index (BMI) 32.5 Intake & Output: Intake and Output for Last 24 Hours 02/23/21 02/24/21 02/25/21 23:59 23:59 23:59 Intake Total 1160 / 1160 2295.00 / 2295.00 Output Total 700 / 700 3550 / 3550 Balance 460 / 460 -1255.00 / -1255.00 Lab / Micro Data Result Diagrams: 02/25/21 05:20 02/25/21 05:20 Labs: Laboratory Results - last 24 hr 02/24/21 02/24/21 02/24/21 16:40 16:40 17:00 WBC 9.4 RBC 3.87 L Hgb 11.4 L Hct 33.7 L MCV 87.1 MCH 29.5 MCHC 33.8 RDW Std Deviation 44.2 H RDW Coeff of José Miguel 13.8 Plt Count 291 MPV 9.5 Immature Gran % (Auto) 0.300 Neut % (Auto) 84.3 H Lymph % (Auto) 10.1 L [place] % (Auto) 5.0 Eos % (Auto) 0.1 Baso % (Auto) 0.2 Absolute Neuts (auto) 7.9 H Absolute Lymphs (auto) 0.95 Nucleated RBC % 0 PT INR APTT Sodium 138 Potassium 4.2 Chloride 107 Carbon Dioxide 19.0 L Anion Gap 12 BUN 46 H Creatinine 3.96 H Estim Creat Clear Calc 16.25 Est GFR (MDRD) Af Amer 16 L Est GFR (MDRD) Non-Af 14 L BUN/Creatinine Ratio 11.6 Glucose 93 Calcium 8.2 L Magnesium Total Bilirubin 0.50 AST 109 H ALT 142 H Alkaline Phosphatase 114 Lactate Dehydrogenase Total Protein 6.7 Albumin 2.6 L Globulin 4.1 Albumin/Globulin Ratio 0.6 L Amylase 32 Lipase 35 L Urine Color Yellow Urine Clarity Sl. Cloudy Urine pH 6.0 Ur Specific [place] 1.010 Urine Protein 100 H Urine Glucose (UA) Normal Urine Ketones Negative Urine Occult Blood 250 H Urine Nitrite Negative Urine Bilirubin Negative Urine Urobilinogen Normal Ur Leukocyte Esterase 100 H Urine RBC 5-10 SEEN Urine WBC 5-10 SEEN Ur Squamous Epith Cells 5-10 SEEN Urine Bacteria 0 SEEN Urine Mucus 0 SEEN U Random Total Protein Ur Random Sodium Urine Creatinine Urine Potassium Urine Chloride Blood Type Antibody Screen 02/24/21 02/24/21 02/24/21 18:00 18:00 18:05 WBC RBC Hgb Hct MCV MCH MCHC RDW Std Deviation RDW Coeff of José Miguel Plt Count MPV Immature Gran % (Auto) Neut % (Auto) Lymph % (Auto) [place] % (Auto) Eos % (Auto) Baso % (Auto) Absolute Neuts (auto) Absolute Lymphs (auto) Nucleated RBC % PT 12.7 INR 1.0 APTT 26.8 Sodium Potassium Chloride Carbon Dioxide Anion Gap BUN Creatinine 4.11 H Estim Creat Clear Calc 15.65 Est GFR (MDRD) Af Amer 16 L Est GFR (MDRD) Non-Af 13 L BUN/Creatinine Ratio Glucose Calcium Magnesium Total Bilirubin AST ALT Alkaline Phosphatase Lactate Dehydrogenase Total Protein Albumin Globulin Albumin/Globulin Ratio Amylase Lipase Urine Color Urine Clarity Urine pH Ur Specific [place] Urine Protein Urine Glucose (UA) Urine Ketones Urine Occult Blood Urine Nitrite Urine Bilirubin Urine Urobilinogen Ur Leukocyte Esterase Urine RBC Urine WBC Ur Squamous Epith Cells Urine Bacteria Urine Mucus U Random Total Protein Ur Random Sodium Urine Creatinine Urine Potassium Urine Chloride Blood Type A POSITIVE Antibody Screen NEGATIVE 02/24/21 02/24/21 02/25/21 22:55 22:55 05:20 WBC 8.9 10.3 RBC 3.74 L 3.90 L Hgb 10.9 L 11.5 L Hct 32.9 L 34.8 L MCV 88.0 89.2 MCH 29.1 29.5 MCHC 33.1 33.0 RDW Std Deviation 44.3 H 44.1 H RDW Coeff of José Miguel 13.7 13.5 Plt Count 277 262 MPV 9.4 9.5 Immature Gran % (Auto) 0.200 0.400 Neut % (Auto) 75.5 H 84.6 H Lymph % (Auto) 16.2 L 10.6 L [place] % (Auto) 7.7 4.2 Eos % (Auto) 0.2 0.0 Baso % (Auto) 0.2 0.2 Absolute Neuts (auto) 6.7 8.7 H Absolute Lymphs (auto) 1.45 1.09 Nucleated RBC % 0 0 PT INR APTT Sodium 137 Potassium 3.8 Chloride 104 Carbon Dioxide 19.0 L Anion Gap 14 BUN 47 H Creatinine 4.01 H Estim Creat Clear Calc 16.04 Est GFR (MDRD) Af Amer 16 L Est GFR (MDRD) Non-Af 13 L BUN/Creatinine Ratio 11.7 Glucose 83 Calcium 8.3 L Magnesium Total Bilirubin 0.50 AST 82 H ALT 125 H Alkaline Phosphatase 110 Lactate Dehydrogenase 228 Total Protein 6.4 Albumin 2.4 L Globulin 4.0 Albumin/Globulin Ratio 0.6 L Amylase Lipase Urine Color Urine Clarity Urine pH Ur Specific [place] Urine Protein Urine Glucose (UA) Urine Ketones Urine Occult Blood Urine Nitrite Urine Bilirubin Urine Urobilinogen Ur Leukocyte Esterase Urine RBC Urine WBC Ur Squamous Epith Cells Urine Bacteria Urine Mucus U Random Total Protein Ur Random Sodium Urine Creatinine Urine Potassium Urine Chloride Blood Type Antibody Screen 02/25/21 02/25/21 02/25/21 05:20 05:20 09:00 WBC RBC Hgb Hct MCV MCH MCHC RDW Std Deviation RDW Coeff of José Miguel Plt Count MPV Immature Gran % (Auto) Neut % (Auto) Lymph % (Auto) [place] % (Auto) Eos % (Auto) Baso % (Auto) Absolute Neuts (auto) Absolute Lymphs (auto) Nucleated RBC % PT INR APTT Sodium 136 Potassium 4.2 Chloride 101 Carbon Dioxide 19.0 L Anion Gap 16 H BUN 49 H Creatinine 3.94 H Estim Creat Clear Calc 16.33 Est GFR (MDRD) Af Amer 17 L Est GFR (MDRD) Non-Af 14 L BUN/Creatinine Ratio 12.4 Glucose 96 Calcium 8.6 Magnesium 12.5 H* Total Bilirubin 0.50 AST 71 H ALT 127 H Alkaline Phosphatase 122 H Lactate Dehydrogenase Total Protein 6.7 Albumin 2.5 L Globulin 4.2 Albumin/Globulin Ratio 0.6 L Amylase Lipase Urine Color Urine Clarity Urine pH Ur Specific [place] Urine Protein Urine Glucose (UA) Urine Ketones Urine Occult Blood Urine Nitrite Urine Bilirubin Urine Urobilinogen Ur Leukocyte Esterase Urine RBC Urine WBC Ur Squamous Epith Cells Urine Bacteria Urine Mucus U Random Total Protein Ur Random Sodium 93 Urine Creatinine < 13.00 Urine Potassium 6.0 Urine Chloride 84 Blood Type Antibody Screen 02/25/21 09:00 WBC RBC Hgb Hct MCV MCH MCHC RDW Std Deviation RDW Coeff of José Miguel Plt Count MPV Immature Gran % (Auto) Neut % (Auto) Lymph % (Auto) [place] % (Auto) Eos % (Auto) Baso % (Auto) Absolute Neuts (auto) Absolute Lymphs (auto) Nucleated RBC % PT INR APTT Sodium Potassium Chloride Carbon Dioxide Anion Gap BUN Creatinine Estim Creat Clear Calc Est GFR (MDRD) Af Amer Est GFR (MDRD) Non-Af BUN/Creatinine Ratio Glucose Calcium Magnesium Total Bilirubin AST ALT Alkaline Phosphatase Lactate Dehydrogenase Total Protein Albumin Globulin Albumin/Globulin Ratio Amylase Lipase Urine Color Urine Clarity Urine pH Ur Specific [place] Urine Protein Urine Glucose (UA) Urine Ketones Urine Occult Blood Urine Nitrite Urine Bilirubin Urine Urobilinogen Ur Leukocyte Esterase Urine RBC Urine WBC Ur Squamous Epith Cells Urine Bacteria Urine Mucus U Random Total Protein 8.1 Ur Random Sodium Urine Creatinine Urine Potassium Urine Chloride Blood Type Antibody Screen Radiography Diagnostic Testing: Radiology Impression Abdomen/Pelvis CT 02/24/21 21:23 IMPRESSION: Mild bilateral hydronephrosis with mild perinephric stranding. Dilated ureters extend to the level of the distended posterior uterus. Large post gravid uterus with thickened endometrial stripe containing hyperdense blood and scattered air. Correlate for retained products of conception or endometritis. Individualized dose optimization techniques were used for this CT. at 2340 Reported and signed by: Lucas Duffy MD Electronically Signed: Lucas Duffy MD at 23:39 EDT Tel , Service support , ADDENDUM: 02/24/21 2351 IMPRESSION: Mild bilateral hydronephrosis with mild perinephric stranding. Dilated ureters extend to the level of the distended posterior uterus. Large post gravid uterus with thickened endometrial stripe containing hyperdense blood and scattered air. Correlate for retained products of conception or endometritis. Individualized dose optimization techniques were used for this CT. at 2340 Reported and signed by: Lucas Duffy MD N.B. : The above Results were Read Back by Lucas Duffy MD to Coleen Garcias RN, and understanding confirmed on 02/24/2021 23:45:01 (ET). Electronically Signed: Lucas Duffy MD at 23:39 EDT Tel , Service support , Pelvis Ultrasound 02/25/21 00:12 IMPRESSION: Enlarged uterus due to recent delivery. The endometrium is heterogeneous and fluid distended suggesting there is likely some retained POC. Short-term follow-up recommended to ensure passage. No suspicious adnexal mass or free fluid Electronically Signed: Evans Harding MD at 9:00 EDT , Service support , Renal Ultrasound 02/25/21 07:31 IMPRESSION: Mildly dilated calyces in both kidneys but no hydronephrosis or hydroureter. Electronically Signed: Evans Harding MD at 9:35 EDT , Service support , Physical Exam Const alert and oriented x3 Constitutional Narrative: Mildly lethargic in appearance HEENT normocephalic Head and Scalp: atraumatic Eyes PERRL Neck full ROM Resp normal respiratory effort, no retractions, no use of accessory muscles and clear to auscultation bilaterally Cardio regular rate, regular rhythm, S1 normal heart sound, S2 normal heart sound, no murmurs, no rub, no gallops, no clicks and peripheral pulses 2+ throughout GI normal to inspection, nondistended, normoactive bowel sounds GI Narrative: Uterus firm and 3 below umbilicus. Incision clean dry and intact Extremity normal to inspection, full ROM and no clubbing, cyanosis or edema Extremity Narrative: +1 pitting edema. Peripheral Pulses: Yes pulses 2+ throughout Skin no rashes or lesions noted Neuro Neuro Narrative: Deep tendon reflexes absent Psych mental status grossly normal, affect normal, speech normal and activity/motor behavior normal Assessment & Plan (1) Delivery by section: PLAN: Patient seen and examined status post on 02/20/2021 and readmitted on 02/24 for severe preeclampsia based on headache LFTs doubly upper limit of normal and elevated. Patient previously started on magnesium at 1830 02/24/21 with 6 g bolus at 2 g an hour. At 0730 this morning mag reduced to 1 g. Mag level ordered this morning by myself found to be 12.5 D10 reflexes absent. Patient with right upper quadrant pain resolved headache. Denies shortness of breath. Lungs clear to auscultation, SPO2 90% on room air. Overall vital signs stable. DC'd mag will get every hour magnesium checks until magnesium within normal range 4.8-8.4. Overall patient with no respiratory depression or cardiac arrest will hold calcium gluconate at this time and use when appropriate. We will continue labetalol 200 mg twice daily that was previously started. For help labs every 6 hours. Seen by nephrology, I discussed the case with the wildlife biostation research ecologist who states to continue current management. Will avoid NSAIDs and Tylenol. IV fluid restriction to 125 cc/h. Okay to a regular diet. Reviewed CT scan and ultrasound findings, radiologist quoted saying possible retained products of conception, with current stable bleeding and firm uterus with no others clinical signs of retained products of conception will expectantly manage likely normal findings after section delivery.
--- NOTE | 2021-02-25 11:01 | CON.PCM.RE_ITS ---
Assessment & Plan Assessment/Plan (1) SUNIL (acute kidney injury): PLAN: hx hypotension post op csection on 02/20, NSAID use. No recent iv contrast exposure. Check renal US, urine sodium, creatinine. UA with mild protein, quantitate with UPCR. Check YOVANI. Creatinine 4 since admit on 02/22. No prior labs to compare. Continue with iv fluids (2) Pre-eclampsia: QUALIFIERS: Trimester: unspecified trimester Qualified Code(s): O14.90 - Unspecified pre-eclampsia, unspecified trimester PLAN: s/p csection delivery with hypertension, proteinuria, elevated transaminase (3) Hypertension: PLAN: started on labetalol by [employer]. Pt plan to breast feed, pumping. HPI Consult Data Date of Consult: 02/27/21 HPI Narrative HPI Narrative: DIANA MATAMOROS, is a 35 F who presents with nausea, vomiting, headache on 02/24/21 with SUNIL and hypertension. Symptoms started on 02/23/21. LFT's elevated with Creatinine 3.9 to 4.11, hgb 11.5g plt 262K LDH 228. No prior labs available. No history of kidney disease she is aware of. Underwent c- section on 02/20/21 discharged on 02/22. She has been taking ibuprofen 600mg q4hrs alternating with tylenol and oxycodone at home. UA on 07/30/20 negative for protein and blood. UA on admit with protein 100mg/dl with blood 250, RBC 0-5. No history of hypertension during . Started on labetalol for hypertension on admit. Denies myalgias. Received iv mag for seizure prophylaxis for post pre-eclampsia. Mg 12.5. Now with sensation of heaviness of extremities. She had 1500cc urine drained after crandall insertion. CT abdomen w/o iv contrast showed perinephric stranding, started on iv antibx for possible UTI. Bilateral mild hydro noted on CT and renal US. Urine clear yellow in crandall. Denies rash, fever, chills, cough. No FH for kidney disease. [facility] Medical History (Updated 02/27/21 @ 07:[address] Jennifer Epperson MD) Single delivery by Home Medications oxycodone 5 mg PO Q6H PRN 5 Days #20 tab 02/20/21 [Rx Last Taken 02/23/21 12:00] [id number] 1 tab PO DAILY 02/20/21 [History Last Taken 02/19/21 21:00] amoxicillin-pot clavulanate 875 mg PO Q12H 5 Days #9 tab 02/27/21 [Rx Last Taken Unknown] enoxaparin 30 mg SUBCUT DAILY 28 Days #8.4 ml 02/27/21 [Rx Last Taken Unknown] labetalol 200 mg PO BID 30 Days #60 tab 02/27/21 [Rx Last Taken Unknown] sevelamer carbonate 1,600 mg PO TIDCM 30 Days #180 tab 02/27/21 [Rx Last Taken Unknown] Allergy/AdvReac Type Severity Reaction Status Date / Time No Known Allergies Allergy Verified 02/20/21 05:23 Family History (Updated 02/24/21 @ 18:[address] Jennifer Epperson MD) Father CAD (coronary artery disease) Mother CAD (coronary artery disease) Surgical History (Updated 02/27/21 @ 10:[address] Tawana Polo DO) Delivery by section Previous section Social History (Updated 02/20/21 @ 07:[address] Martha Saxena DO) Smoking Status: Never smoker alcohol intake: never substance use type: does not use ROS Constitutional Constitutional: Reports malaise and weakness; Denies chills or fever(s) Eyes Eyes: Denies loss of vision ENT HEENT: Denies epistaxis Cardiovascular Cardiovascular: Denies chest pain Respiratory/Chest Respiratory/Chest: Denies hemoptysis or shortness of breath at rest Gastrointestinal Gastrointestinal: Reports anorexia, nausea, vomiting and other Details: x2 days ; Denies diarrhea or hematemesis Genitourinary Genitourinary: Denies difficulty urinating, dysuria, flank pain or hematuria Musculoskeletal Musculoskeletal: Denies joint swelling Integumentary Integumentary: Denies rash Neurologic Neurologic: Reports weakness; Denies confusion, seizures, syncope or tremor(s) Psychiatric Psychiatric: Denies anxiety or depression Endocrine Endocrinology: Denies cold intolerance or heat intolerance Hematologic/Lymphatic Hematologic/Lymphatic: Denies anemia Physical Exam Const alert and oriented x3 HEENT normocephalic Eyes PERRL Resp clear to auscultation bilaterally Cardio regular rate, no murmurs and no rub GI non-tender GI Narrative: incisional pain s/p csection, post uterus Palpation: soft Narrative: clear pale yellow urine Bladder / Kidney Exam: catheter in place Back/Spine normal ROM Back/Spine Narrative: decreased strength due to mag infusion Extremity Extremity Narrative: gen weakness on mag infusion Skin No no rashes or lesions noted Neuro Neuro Narrative: sluggish on mag infusion Sensorium / Orientation: awake and alert Psych cooperative Lab / Micro Data Result Diagrams: 02/26/21 04:00 02/27/21 05:25 Labs: Laboratory Results - last 24 hr 02/24/21 02/24/21 02/24/21 16:40 16:40 17:00 WBC 9.4 RBC 3.87 L Hgb 11.4 L Hct 33.7 L MCV 87.1 MCH 29.5 MCHC 33.8 RDW Std Deviation 44.2 H RDW Coeff of José Miguel 13.8 Plt Count 291 MPV 9.5 Immature Gran % (Auto) 0.300 Neut % (Auto) 84.3 H Lymph % (Auto) 10.1 L [place] % (Auto) 5.0 Eos % (Auto) 0.1 Baso % (Auto) 0.2 Absolute Neuts (auto) 7.9 H Absolute Lymphs (auto) 0.95 Nucleated RBC % 0 PT INR APTT Sodium 138 Potassium 4.2 Chloride 107 Carbon Dioxide 19.0 L Anion Gap 12 BUN 46 H Creatinine 3.96 H Estim Creat Clear Calc 16.25 Est GFR (MDRD) Af Amer 16 L Est GFR (MDRD) Non-Af 14 L BUN/Creatinine Ratio 11.6 Glucose 93 Calcium 8.2 L Magnesium Total Bilirubin 0.50 AST 109 H ALT 142 H Alkaline Phosphatase 114 Lactate Dehydrogenase Total Protein 6.7 Albumin 2.6 L Globulin 4.1 Albumin/Globulin Ratio 0.6 L Amylase 32 Lipase 35 L Urine Color Yellow Urine Clarity Sl. Cloudy Urine pH 6.0 Ur Specific [place] 1.010 Urine Protein 100 H Urine Glucose (UA) Normal Urine Ketones Negative Urine Occult Blood 250 H Urine Nitrite Negative Urine Bilirubin Negative Urine Urobilinogen Normal Ur Leukocyte Esterase 100 H Urine RBC 5-10 SEEN Urine WBC 5-10 SEEN Ur Squamous Epith Cells 5-10 SEEN Urine Bacteria 0 SEEN Urine Mucus 0 SEEN U Random Total Protein Ur Random Sodium Urine Creatinine Urine Potassium Urine Chloride Blood Type Antibody Screen 02/24/21 02/24/21 02/24/21 18:00 18:00 18:05 WBC RBC Hgb Hct MCV MCH MCHC RDW Std Deviation RDW Coeff of José Miguel Plt Count MPV Immature Gran % (Auto) Neut % (Auto) Lymph % (Auto) [place] % (Auto) Eos % (Auto) Baso % (Auto) Absolute Neuts (auto) Absolute Lymphs (auto) Nucleated RBC % PT 12.7 INR 1.0 APTT 26.8 Sodium Potassium Chloride Carbon Dioxide Anion Gap BUN Creatinine 4.11 H Estim Creat Clear Calc 15.65 Est GFR (MDRD) Af Amer 16 L Est GFR (MDRD) Non-Af 13 L BUN/Creatinine Ratio Glucose Calcium Magnesium Total Bilirubin AST ALT Alkaline Phosphatase Lactate Dehydrogenase Total Protein Albumin Globulin Albumin/Globulin Ratio Amylase Lipase Urine Color Urine Clarity Urine pH Ur Specific [place] Urine Protein Urine Glucose (UA) Urine Ketones Urine Occult Blood Urine Nitrite Urine Bilirubin Urine Urobilinogen Ur Leukocyte Esterase Urine RBC Urine WBC Ur Squamous Epith Cells Urine Bacteria Urine Mucus U Random Total Protein Ur Random Sodium Urine Creatinine Urine Potassium Urine Chloride Blood Type A POSITIVE Antibody Screen NEGATIVE 02/24/21 02/24/21 02/25/21 22:55 22:55 05:20 WBC 8.9 10.3 RBC 3.74 L 3.90 L Hgb 10.9 L 11.5 L Hct 32.9 L 34.8 L MCV 88.0 89.2 MCH 29.1 29.5 MCHC 33.1 33.0 RDW Std Deviation 44.3 H 44.1 H RDW Coeff of José [place] 13.7 13.5 Plt Count 277 262 MPV 9.4 9.5 Immature Gran % (Auto) 0.200 0.400 Neut % (Auto) 75.5 H 84.6 H Lymph % (Auto) 16.2 L 10.6 L [place] % (Auto) 7.7 4.2 Eos % (Auto) 0.2 0.0 Baso % (Auto) 0.2 0.2 Absolute Neuts (auto) 6.7 8.7 H Absolute Lymphs (auto) 1.45 1.09 Nucleated RBC % 0 0 PT INR APTT Sodium 137 Potassium 3.8 Chloride 104 Carbon Dioxide 19.0 L Anion Gap 14 BUN 47 H Creatinine 4.01 H Estim Creat Clear Calc 16.04 Est GFR (MDRD) Af Amer 16 L Est GFR (MDRD) Non-Af 13 L BUN/Creatinine Ratio 11.7 Glucose 83 Calcium 8.3 L Magnesium Total Bilirubin 0.50 AST 82 H ALT 125 H Alkaline Phosphatase 110 Lactate Dehydrogenase 228 Total Protein 6.4 Albumin 2.4 L Globulin 4.0 Albumin/Globulin Ratio 0.6 L Amylase Lipase Urine Color Urine Clarity Urine pH Ur Specific [place] Urine Protein Urine Glucose (UA) Urine Ketones Urine Occult Blood Urine Nitrite Urine Bilirubin Urine Urobilinogen Ur Leukocyte Esterase Urine RBC Urine WBC Ur Squamous Epith Cells Urine Bacteria Urine Mucus U Random Total Protein Ur Random Sodium Urine Creatinine Urine Potassium Urine Chloride Blood Type Antibody Screen 02/25/21 02/25/21 02/25/21 05:20 05:20 09:00 WBC RBC Hgb Hct MCV MCH MCHC RDW Std Deviation RDW Coeff of [place] Plt Count MPV Immature Gran % (Auto) Neut % (Auto) Lymph % (Auto) [place] % (Auto) Eos % (Auto) Baso % (Auto) Absolute Neuts (auto) Absolute Lymphs (auto) Nucleated RBC % PT INR APTT Sodium 136 Potassium 4.2 Chloride 101 Carbon Dioxide 19.0 L Anion Gap 16 H BUN 49 H Creatinine 3.94 H Estim Creat Clear Calc 16.33 Est GFR (MDRD) Af Amer 17 L Est GFR (MDRD) Non-Af 14 L BUN/Creatinine Ratio 12.4 Glucose 96 Calcium 8.6 Magnesium 12.5 H* Total Bilirubin 0.50 AST 71 H ALT 127 H Alkaline Phosphatase 122 H Lactate Dehydrogenase Total Protein 6.7 Albumin 2.5 L Globulin 4.2 Albumin/Globulin Ratio 0.6 L Amylase Lipase Urine Color Urine Clarity Urine pH Ur Specific [place] Urine Protein Urine Glucose (UA) Urine Ketones Urine Occult Blood Urine Nitrite Urine Bilirubin Urine Urobilinogen Ur Leukocyte Esterase Urine RBC Urine WBC Ur Squamous Epith Cells Urine Bacteria Urine Mucus U Random Total Protein Ur Random Sodium 93 Urine Creatinine < 13.00 Urine Potassium 6.0 Urine Chloride 84 Blood Type Antibody Screen 02/25/21 09:00 WBC RBC Hgb Hct MCV MCH MCHC RDW Std Deviation RDW Coeff of [place] Miguel Plt Count MPV Immature Gran % (Auto) Neut % (Auto) Lymph % (Auto) [place] % (Auto) Eos % (Auto) Baso % (Auto) Absolute Neuts (auto) Absolute Lymphs (auto) Nucleated RBC % PT INR APTT Sodium Potassium Chloride Carbon Dioxide Anion Gap BUN Creatinine Estim Creat Clear Calc Est GFR (MDRD) Af Amer Est GFR (MDRD) Non-Af BUN/Creatinine Ratio Glucose Calcium Magnesium Total Bilirubin AST ALT Alkaline Phosphatase Lactate Dehydrogenase Total Protein Albumin Globulin Albumin/Globulin Ratio Amylase Lipase Urine Color Urine Clarity Urine pH Ur Specific [place] Urine Protein Urine Glucose (UA) Urine Ketones Urine Occult Blood Urine Nitrite Urine Bilirubin Urine Urobilinogen Ur Leukocyte Esterase Urine RBC Urine WBC Ur Squamous Epith Cells Urine Bacteria Urine Mucus U Random Total Protein 8.1 Ur Random Sodium Urine Creatinine Urine Potassium Urine Chloride Blood Type Antibody Screen Radiology Impression Abdomen/Pelvis CT 02/24/21 21:23 IMPRESSION: Mild bilateral hydronephrosis with mild perinephric stranding. Dilated ureters extend to the level of the distended posterior uterus. Large post gravid uterus with thickened endometrial stripe containing hyperdense blood and scattered air. Correlate for retained products of conception or endometritis. Individualized dose optimization techniques were used for this CT. at 2340 Reported and signed by: Lucas Duffy MD Electronically Signed: Lucas Duffy MD at 23:39 EDT Tel , Service support , ADDENDUM: 02/24/21 2351 IMPRESSION: Mild bilateral hydronephrosis with mild perinephric stranding. Dilated ureters extend to the level of the distended posterior uterus. Large post gravid uterus with thickened endometrial stripe containing hyperdense blood and scattered air. Correlate for retained products of conception or endometritis. Individualized dose optimization techniques were used for this CT. at 2340 Reported and signed by: Lucas Duffy MD N.B. : The above Results were Read Back by Lucas Duffy MD to Coleen Garcias RN, and understanding confirmed on 02/24/2021 23:45:01 (ET). Electronically Signed: Lucas Duffy MD at 23:39 EDT Tel , Service support , Pelvis Ultrasound 02/25/21 00:12 IMPRESSION: Enlarged uterus due to recent delivery. The endometrium is heterogeneous and fluid distended suggesting there is likely some retained POC. Short-term follow-up recommended to ensure passage. No suspicious adnexal mass or free fluid Electronically Signed: Evans Harding MD at 9:00 EDT , Service support , Renal Ultrasound 02/25/21 07:31 IMPRESSION: Mildly dilated calyces in both kidneys but no hydronephrosis or hydroureter. Electronically Signed: Evans Harding MD at 9:35 EDT , Service support ,
[2021-02-25 12:03] LABS: Hematocrit 34.9 % (37-47); Hemoglobin 11.8 g/dL (12.0-15.0); Mean Corp Hgb Conc 33.8 g/dL (32-36); Mean Corpuscular Hgb 29.3 pg (27.0-32.0); Mean Corpuscular Volume 86.6 fL (81-99); Mean Platelet Vol. 9.3 fl (6.2-12.0); Platelet Count 294 K/mm3 (150-450); RBC Distribution Width CV 13.4 % (11.6-14.6); Red Blood Count 4.03 M/mm3 (4.2-5.4); White Blood Count 9.6 K/mm3 (4.4-11.0)
[2021-02-25 12:14] LABS: ALB/GLOB Ratio 0.6 RATIO (0.9-2.4); AST(SGOT) 56 U/L (15-37); Alanine Aminotransfer ALT/SGPT 114 U/L (13-56); Albumin, Serum 2.5 g/dL (3.2-5.0); Alkaline Phosphatase 116 U/L (45-117); Anion Gap 15 (5-15); BUN 48 mg/dL (7-18); BUN/Creat Ratio 12.1 RATIO (10-20); Calcium,Total 8.3 mg/dL (8.5-10.1); Chloride 97 mmol/L (98-107); Creatinine, Serum 3.96 mg/dL (0.55-1.02); EST Glomerular Filtration Rate 14 mL/min (>60); Est Glom Filt Rate - Afr Amer 16 mL/min (>60); Estimated Creatinine Clearance 16.25 ml/min; Globulin 4.1 g/dL (2.2-4.2); Glucose 109 mg/dL (74-106); LDH 249 U/L (84-246); Potassium 4.2 mmol/L (3.5-5.1); Protein, Total 6.6 g/dL (6.4-8.2); Sodium Level 131 mmol/L (136-145)
[2021-02-25 12:17] LABS: Magnesium 11.6 mg/dL (1.6-2.6)
[2021-02-25 13:25] LABS: Magnesium 11.7 mg/dL (1.6-2.6)
[2021-02-25 14:04] LABS: Magnesium 11.2 mg/dL (1.6-2.6)
[2021-02-25] MEDS: Amox/Clavulanate 875 MG Tablet PO (14:28)
--- NOTE | 2021-02-25 17:54 | PN_ITS ---
Progress Note Feels unwell secondary to the magnesium infusion. Blood pressure is also still elevated, would continue with IV fluids. Labs reviewed please refer to chart Assessment and plan 1. Post preeclampsia versus help syndrome -Per primary -Continue with magnesium infusions 2. ATN/HTN -Based on slow response of creatinine to IV fluids she likely has a component of ATN. Unsure as to the etiology could be secondary to blood loss during C- section plus dehydration at home plus use of Advil -Renal ultrasound unremarkable urine electrolytes also unremarkable -May need to add Norvasc for better control of her blood pressure if necessary -Continue with IV fluids DVT: Lovenox Physical Exam Const alert, oriented x3 and no apparent distress General Appearance: cooperative HEENT normocephalic and moist oral mucous membranes Eyes PERRL, EOMs intact bilaterally and conjunctivae normal Neck supple and no JVD Resp normal respiratory effort, normal air movement, no retractions, no use of accessory muscles and clear to auscultation bilaterally Auscultation: Negative for crackles, rales, rhonchi or wheezes Cardio regular rate, regular rhythm, S1 normal heart sound, S2 normal heart sound and no murmurs GI soft to palpation and non-distended; Negative for hepatosplenomegaly Palpation: tender other ( incision) Extremity General Extremity: edema bilateral lower extremity Details: mild; Negative for clubbing or cyanosis Skin no rashes or lesions noted Neuro no focal motor deficits and no sensory deficits noted Psych affect normal Appearance: appropriate Visit Charges Inpatient E&M: 06237 Subs Hosp L3
--- NOTE | 2021-02-25 18:50 | PCM.PN.BLA ---
Progress Note Subjective: Patient feeling mildly improved. Still with lethargy tiredness and nausea. Denies headache, visual changes, chest pain, shortness of breath. Physical exam: Blood pressure 153/88 pulse 74 respiratory rate 16 SPO2 98% on room air General: Appears tired HEENT: Normocephalic atraumatic Cardiac/respiratory: Nonlabored breathing, no use of accessory muscles Abdomen: Soft nontender nondistended. Uterus 3 below umbilicus Extremities: +1 lower extremity peripheral edema unchanged. DTRs +1. Psych: Normal affect normal demeanor nonpressured speech Assessment and plan: Patient seen and examined, improved from last evaluation. Magnesium level continues to trend downward. Magnesium currently off. Now status post 24 hours of magnesium. Diagnosed with ATN by nephrology. HELLP labs now. Pending mag level and liver functions along with kidney functions we will continue to monitor. Nonsevere asymptomatic hyponatremia, will start normal saline and DC LR.
[2021-02-25 20:10] LABS: Absolute Lymphocyte Count 1.18 X10^3/uL (0.83-4.51); Absolute Neutrophil Count 8.2 X10^3/uL (2.0-7.7); Basophil# 0.02 X10^3/uL; Basophil% 0.2 % (0-1); Eosinophil# 0.02 X10^3/uL; Eosinophils% 0.2 % (0-5); Hematocrit 36.5 % (37-47); Hemoglobin 12.4 g/dL (12.0-15.0); Lymphocyte # 1.18 X10^3/ul (0.83-4.51); Lymphocyte % 11.8 % (19-41); Mean Corpuscular Hgb 29.1 pg (27.0-32.0); Mean Corpuscular Volume 85.7 fL (81-99); Mean Platelet Vol. 9.3 fl (6.2-12.0); Monocyte# 0.54 X10^3/uL; Monocyte% 5.4 % (0-10); NRBC Flagged by Analyzer 0 % (0-5); Neutrophil # 8.21 X10^3/uL (2.7-7.7); Neutrophil % 82.1 % (47-70); Platelet Count 285 K/mm3 (150-450); RBC Distribution Width CV 13.5 % (11.6-14.6); RBC Distribution Width SD 41.9 fl (35.1-43.9); Red Blood Count 4.26 M/mm3 (4.2-5.4)
[2021-02-25 20:46] LABS: ALB/GLOB Ratio 0.6 RATIO (0.9-2.4); AST(SGOT) 44 U/L (15-37); Alanine Aminotransfer ALT/SGPT 103 U/L (13-56); Albumin, Serum 2.5 g/dL (3.2-5.0); Alkaline Phosphatase 108 U/L (45-117); Anion Gap 14 (5-15); BUN 53 mg/dL (7-18); BUN/Creat Ratio 12.6 RATIO (10-20); Chloride 98 mmol/L (98-107); Creatinine, Serum 4.22 mg/dL (0.55-1.02); EST Glomerular Filtration Rate 13 mL/min (>60); Est Glom Filt Rate - Afr Amer 15 mL/min (>60); Estimated Creatinine Clearance 15.25 ml/min; Glucose 99 mg/dL (74-106); Magnesium 9.8 mg/dL (1.6-2.6); Potassium 4.2 mmol/L (3.5-5.1); Protein, Total 6.5 g/dL (6.4-8.2); Sodium Level 132 mmol/L (136-145)
[2021-02-25] MEDS: 0.9% Normal Saline 1,000 ML 125 ML IV (21:23)
[2021-02-26] VITALS (12 sets, daily range): BP systolic 122–149; BP diastolic 69–87; PULSE 66–72; RESP 16–18; TEMP 35.6–37.4; O2SAT 96–98
[2021-02-26] MEDS: Amox/Clavulanate 875 MG Tablet PO ×2 (03:16→15:07)
[2021-02-26 05:24] LABS: Absolute Lymphocyte Count 1.31 X10^3/uL (0.83-4.51); Absolute Neutrophil Count 6.6 X10^3/uL (2.0-7.7); Basophil# 0.03 X10^3/uL; Basophil% 0.4 % (0-1); Eosinophil# 0.06 X10^3/uL; Eosinophils% 0.7 % (0-5); Hematocrit 33.6 % (37-47); Hemoglobin 11.2 g/dL (12.0-15.0); Lymphocyte # 1.31 X10^3/ul (0.83-4.51); Lymphocyte % 15.5 % (19-41); Mean Corp Hgb Conc 33.3 g/dL (32-36); Mean Platelet Vol. 9.3 fl (6.2-12.0); Monocyte# 0.46 X10^3/uL; Monocyte% 5.5 % (0-10); NRBC Flagged by Analyzer 0 % (0-5); Neutrophil # 6.55 X10^3/uL (2.7-7.7); Neutrophil % 77.5 % (47-70); Platelet Count 281 K/mm3 (150-450); RBC Distribution Width CV 13.5 % (11.6-14.6); RBC Distribution Width SD 43.3 fl (35.1-43.9); Red Blood Count 3.86 M/mm3 (4.2-5.4); White Blood Count 8.4 K/mm3 (4.4-11.0)
[2021-02-26] MEDS: 0.9% Normal Saline 1,000 ML 125 ML IV ×3 (05:31→20:23)
[2021-02-26 06:03] LABS: ALB/GLOB Ratio 0.6 RATIO (0.9-2.4); AST(SGOT) 31 U/L (15-37); Alanine Aminotransfer ALT/SGPT 86 U/L (13-56); Albumin, Serum 2.3 g/dL (3.2-5.0); Alkaline Phosphatase 105 U/L (45-117); Anion Gap 15 (5-15); BUN 59 mg/dL (7-18); BUN/Creat Ratio 13.9 RATIO (10-20); Calcium,Total 7.5 mg/dL (8.5-10.1); Chloride 99 mmol/L (98-107); Creatinine, Serum 4.25 mg/dL (0.55-1.02); EST Glomerular Filtration Rate 13 mL/min (>60); Est Glom Filt Rate - Afr Amer 15 mL/min (>60); Estimated Creatinine Clearance 15.14 ml/min; Globulin 3.8 g/dL (2.2-4.2); Glucose 93 mg/dL (74-106); Magnesium 8.5 mg/dL (1.6-2.6); Phosphorus 9.3 mg/dL (2.5-4.9); Protein, Total 6.1 g/dL (6.4-8.2); Sodium Level 134 mmol/L (136-145)
--- NOTE | 2021-02-26 07:58 | PCM.PN.BLA ---
Progress Note Subjective: Patient feeling much improved. Feels much less lethargic. Patient still with some right upper quadrant pain. Denies headache, vision changes, chest pain, shortness of breath, nausea vomiting. Physical exam: Vitals: Blood pressure 122/80 pulse 67 respiratory rate 18 SPO2 96% on room air General: Normal-appearing no acute distress HEENT: Normocephalic atraumatic Cardiac/respiratory: Nonlabored breathing, no use of accessory muscles Abdomen: Soft, nontender, nondistended. Bandage clean dry and intact Extremities: +1 lower extremity pitting edema, unchanged. Negative clonus DTRs +1 Neuro: Grossly intact Psych: Normal affect normal demeanor nonpressured speech Assessment plan: Patient with severe preeclampsia blood pressure stable on labetalol 200 mg twice daily. Status post 24 hours magnesium. LFTs normalizing. Magnesium toxicity, now improving magnesium level now within normal therapeutic range. We will continue expectant management. Patient seen by nephrology diagnosed with ATN likely secondary to preeclampsia, continue IV and oral hydration. Urine output within normal limits. Nonsevere hyponatremia improving with normal saline. To ambulate today.
[2021-02-26] MEDS: Enoxaparin 30 MG/0.3 ML Syringe SC (10:08)
[2021-02-26] MEDS: Labetalol 200 MG Tablet PO ×2 (10:08→22:02)
--- NOTE | 2021-02-26 12:04 | PN.HOSP_ITS ---
Subjective Subjective Feels much better today now the magnesium was discontinued. Blood pressure is much better controlled however her creatinine did jump today. Objective Data Objective Data Vital Signs: Vital Signs Temp Pulse Resp BP Pulse Ox 97.0 F L 66 16 126/69 H 96 02/26/21 11:53 02/26/21 11:53 02/26/21 11:53 02/26/21 11:53 02/26/21 03:18 Oxygen Delivery Method Room Air Weight: 183 lb 9.6 oz Body Mass Index (BMI) 32.5 Intake & Output: Intake and Output for Last 24 Hours 02/25/21 02/26/21 02/27/21 03:59 03:59 03:59 Intake Total 2011.5 / 2011.5 3285.42 / 3285.42 1150 / 1150 Output Total 2585 / 2585 5365 / 5365 450 / 450 Balance -572.5 / -572.5 -2079.58 / -2079.58 700 / 700 Lab / Micro Data Result Diagrams: 02/26/21 04:00 02/26/21 04:00 Labs: Laboratory Results - last 24 hr 02/25/21 02/25/21 02/25/21 11:51 11:51 11:51 WBC 9.6 RBC 4.03 L Hgb 11.8 L Hct 34.9 L MCV 86.6 MCH 29.3 MCHC 33.8 RDW Std Deviation 42.0 RDW Coeff of José Miguel 13.4 Plt Count 294 MPV 9.3 Immature Gran % (Auto) Neut % (Auto) Lymph % (Auto) [place] % (Auto) Eos % (Auto) Baso % (Auto) Absolute Neuts (auto) Absolute Lymphs (auto) Nucleated RBC % Sodium 131 L Potassium 4.2 Chloride 97 L Carbon Dioxide 19.0 L Anion Gap 15 BUN 48 H Creatinine 3.96 H Estim Creat Clear Calc 16.25 Est GFR (MDRD) Af Amer 16 L Est GFR (MDRD) Non-Af 14 L BUN/Creatinine Ratio 12.1 Glucose 109 H Calcium 8.3 L Phosphorus Magnesium 11.6 H* Total Bilirubin 0.50 AST 56 H ALT 114 H Alkaline Phosphatase 116 Lactate Dehydrogenase 249 H Total Protein 6.6 Albumin 2.5 L Globulin 4.1 Albumin/Globulin Ratio 0.6 L 02/25/21 02/25/21 02/25/21 12:47 13:40 14:44 WBC RBC Hgb Hct MCV MCH MCHC RDW Std Deviation RDW Coeff of José Miguel Plt Count MPV Immature Gran % (Auto) Neut % (Auto) Lymph % (Auto) [place] % (Auto) Eos % (Auto) Baso % (Auto) Absolute Neuts (auto) Absolute Lymphs (auto) Nucleated RBC % Sodium Potassium Chloride Carbon Dioxide Anion Gap BUN Creatinine Estim Creat Clear Calc Est GFR (MDRD) Af Amer Est GFR (MDRD) Non-Af BUN/Creatinine Ratio Glucose Calcium Phosphorus Magnesium 11.7 H* 11.2 H* 11.0 H* Total Bilirubin AST ALT Alkaline Phosphatase Lactate Dehydrogenase Total Protein Albumin Globulin Albumin/Globulin Ratio 02/25/21 02/25/21 02/26/21 20:00 20:00 04:00 WBC 10.0 RBC 4.26 Hgb 12.4 Hct 36.5 L MCV 85.7 MCH 29.1 MCHC 34.0 RDW Std Deviation 41.9 RDW Coeff of José Miguel 13.5 Plt Count 285 MPV 9.3 Immature Gran % (Auto) 0.300 Neut % (Auto) 82.1 H Lymph % (Auto) 11.8 L [place] % (Auto) 5.4 Eos % (Auto) 0.2 Baso % (Auto) 0.2 Absolute Neuts (auto) 8.2 H Absolute Lymphs (auto) 1.18 Nucleated RBC % 0 Sodium 132 L 134 L Potassium 4.2 4.0 Chloride 98 99 Carbon Dioxide 20.0 L 20.0 L Anion Gap 14 15 BUN 53 H 59 H Creatinine 4.22 H 4.25 H Estim Creat Clear Calc 15.25 15.14 Est GFR (MDRD) Af Amer 15 L 15 L Est GFR (MDRD) Non-Af 13 L 13 L BUN/Creatinine Ratio 12.6 13.9 Glucose 99 93 Calcium 8.0 L 7.5 L Phosphorus 9.3 H* Magnesium 9.8 H* 8.5 H* Total Bilirubin 0.60 0.60 AST 44 H 31 ALT 103 H 86 H Alkaline Phosphatase 108 105 Lactate Dehydrogenase Total Protein 6.5 6.1 L Albumin 2.5 L 2.3 L Globulin 4.0 3.8 Albumin/Globulin Ratio 0.6 L 0.6 L 02/26/21 04:00 WBC 8.4 RBC 3.86 L Hgb 11.2 L Hct 33.6 L MCV 87.0 MCH 29.0 MCHC 33.3 RDW Std Deviation 43.3 RDW Coeff of José Miguel 13.5 Plt Count 281 MPV 9.3 Immature Gran % (Auto) 0.400 Neut % (Auto) 77.5 H Lymph % (Auto) 15.5 L [place] % (Auto) 5.5 Eos % (Auto) 0.7 Baso % (Auto) 0.4 Absolute Neuts (auto) 6.6 Absolute Lymphs (auto) 1.31 Nucleated RBC % 0 Sodium Potassium Chloride Carbon Dioxide Anion Gap BUN Creatinine Estim Creat Clear Calc Est GFR (MDRD) Af Amer Est GFR (MDRD) Non-Af BUN/Creatinine Ratio Glucose Calcium Phosphorus Magnesium Total Bilirubin AST ALT Alkaline Phosphatase Lactate Dehydrogenase Total Protein Albumin Globulin Albumin/Globulin Ratio Micro: Microbiology 02/25/21 02:25 Urine Catheter - Lopez Urine Culture - Preliminary Culture exhibits no growth. 02/24/21 17:00 Urine, Clean Catch Urine Culture - Final Presumptive E. coli Physical Exam Const alert, oriented x3 and no apparent distress General Appearance: cooperative HEENT normocephalic and moist oral mucous membranes Eyes PERRL, EOMs intact bilaterally and conjunctivae normal Neck supple and no JVD Resp normal respiratory effort, normal air movement, no retractions, no use of accessory muscles and clear to auscultation bilaterally Auscultation: Negative for crackles, rales, rhonchi or wheezes Cardio regular rate, regular rhythm, S1 normal heart sound, S2 normal heart sound and no murmurs GI soft to palpation and non-distended; Negative for hepatosplenomegaly Palpation: tender other ( incision) Extremity General Extremity: edema bilateral lower extremity Details: mild; Negative for clubbing or cyanosis Skin no rashes or lesions noted Neuro no focal motor deficits and no sensory deficits noted Psych affect normal Appearance: appropriate Assessment & Plan Assessment/Plan (1) Pre-eclampsia: QUALIFIERS: Trimester: unspecified trimester Qualified Code(s): O14.90 - Unspecified pre-eclampsia, unspecified trimester (2) ATN (acute tubular necrosis): PLAN: 1. Post preeclampsia -Per primary -Magnesium this morning is 8.5, magnesium infusions have been discontinued 2. ATN/HTN -Based on slow response of creatinine to IV fluids she likely has a component of ATN. Unsure as to the etiology could be secondary to blood loss during C- section plus dehydration at home plus use of Advil -Renal ultrasound unremarkable urine electrolytes also unremarkable -Blood pressure does appear to be controlled with the labetalol -Continue with IV fluids, anticipate phosphorus level and magnesium level improved with improved renal function as well as cessation of magnesium infusion -Creatinine did worsen overnight and this could also be secondary to her hypomagnesemia and hyperphosphatemia DVT: Lovenox Charges/Coding Visit Charges Inpatient E&M: 75245 Subs Hosp L2
--- NOTE | 2021-02-26 14:18 | PCM.PN.REN ---
Subjective Subjective nausea, vomiting better. Appetite improved. Renal fxn not showing improvement. Urine output good. Objective Data Objective Data Vital Signs: Vital Signs Temp Pulse Resp BP Pulse Ox 97.0 F L 66 16 126/69 H 96 02/26/21 11:53 02/26/21 11:53 02/26/21 11:53 02/26/21 11:53 02/26/21 03:18 Oxygen Delivery Method Room Air Weight: 83.28 kg Body Mass Index (BMI) 32.5 Intake & Output: Intake and Output for Last 24 Hours 02/24/21 02/25/21 02/26/21 23:59 23:59 23:59 Intake Total 1160 / 1160 3912.92 / 3912.92 3295.83 / 3295.83 Output Total 700 / 700 6500 / 6500 2800 / 2800 Balance 460 / 460 -2587.08 / -2587.08 495.83 / 495.83 Lab / Micro Data Result Diagrams: 02/26/21 04:00 02/26/21 04:00 Labs: Laboratory Results - last 24 hr 02/25/21 02/25/21 02/25/21 14:44 20:00 20:00 WBC 10.0 RBC 4.26 Hgb 12.4 Hct 36.5 L MCV 85.7 MCH 29.1 MCHC 34.0 RDW Std Deviation 41.9 RDW Coeff of José Miguel 13.5 Plt Count 285 MPV 9.3 Immature Gran % (Auto) 0.300 Neut % (Auto) 82.1 H Lymph % (Auto) 11.8 L [place] % (Auto) 5.4 Eos % (Auto) 0.2 Baso % (Auto) 0.2 Absolute Neuts (auto) 8.2 H Absolute Lymphs (auto) 1.18 Nucleated RBC % 0 Sodium 132 L Potassium 4.2 Chloride 98 Carbon Dioxide 20.0 L Anion Gap 14 BUN 53 H Creatinine 4.22 H Estim Creat Clear Calc 15.25 Est GFR (MDRD) Af Amer 15 L Est GFR (MDRD) Non-Af 13 L BUN/Creatinine Ratio 12.6 Glucose 99 Calcium 8.0 L Phosphorus Magnesium 11.0 H* 9.8 H* Total Bilirubin 0.60 AST 44 H ALT 103 H Alkaline Phosphatase 108 Total Protein 6.5 Albumin 2.5 L Globulin 4.0 Albumin/Globulin Ratio 0.6 L 07/06/21 07/06/21 04:00 04:00 WBC 8.4 RBC 3.86 L Hgb 11.2 L Hct 33.6 L MCV 87.0 MCH 29.0 MCHC 33.3 RDW Std Deviation 43.3 RDW Coeff of José Miguel 13.5 Plt Count 281 MPV 9.3 Immature Gran % (Auto) 0.400 Neut % (Auto) 77.5 H Lymph % (Auto) 15.5 L [place] % (Auto) 5.5 Eos % (Auto) 0.7 Baso % (Auto) 0.4 Absolute Neuts (auto) 6.6 Absolute Lymphs (auto) 1.31 Nucleated RBC % 0 Sodium 134 L Potassium 4.0 Chloride 99 Carbon Dioxide 20.0 L Anion Gap 15 BUN 59 H Creatinine 4.25 H Estim Creat Clear Calc 15.14 Est GFR (MDRD) Af Amer 15 L Est GFR (MDRD) Non-Af 13 L BUN/Creatinine Ratio 13.9 Glucose 93 Calcium 7.5 L Phosphorus 9.3 H* Magnesium 8.5 H* Total Bilirubin 0.60 AST 31 ALT 86 H Alkaline Phosphatase 105 Total Protein 6.1 L Albumin 2.3 L Globulin 3.8 Albumin/Globulin Ratio 0.6 L Micro: Microbiology 02/25/21 02:25 Urine Catheter - Crandall Urine Culture - Preliminary Culture exhibits no growth. 02/24/21 17:00 Urine, Clean Catch Urine Culture - Final Presumptive E. coli Physical Exam Const alert, oriented x3 and no apparent distress Resp clear to auscultation bilaterally Cardio regular rate GI non-tender and non-distended Palpation: soft Neuro Sensorium / Orientation: awake and alert Psych cooperative Assessment & Plan Assessment/Plan (1) SUNIL (acute kidney injury): PLAN: hx hypotension post op csection on 02/20, NSAID use. No recent iv contrast exposure. renal US mild hydro with 1500cc urine output with crandall insertion. Creatinine unchanged at 4.25. FENA >1% to suggest ATN but cannot r/o other potential causes. YOVANI pending. Discussed with pt may need biopsy if renal fxn does not improve. Discussed potential complications of kidney biopsy eg bleeding, loss of kidney and rare occassion loss of life from excessive blood loss from procedure but is <0.1% risk. Will continue to monitor renal fn for now. No urgency for dialysis at this time. (2) Pre-eclampsia: QUALIFIERS: Trimester: unspecified trimester Qualified Code(s): O14.90 - Unspecified pre-eclampsia, unspecified trimester PLAN: s/p csection delivery with hypertension, proteinuria, elevated transaminase. LFT's improving (3) Hypertension: PLAN: stable (4) Single delivery by : PLAN: on 02/20/21 (5) Hyperphosphatemia: PLAN: phos 9.3 start phos binders, sevelamer. Avoid dairy. Pt has been drinking milk a lot at home.
[2021-02-26] MEDS: Docusate Sodium 100 MG Capsule PO ×2 (15:07→22:02)
[2021-02-26] MEDS: SEVELAMER CARBONATE 800 MG TABLET 1600 MG PO (19:28)
[2021-02-26 20:10] LABS: ANTINUCLEAR ANTIBODIES DIRECT Negative (Negative)
[2021-02-27] MEDS: Amox/Clavulanate 875 MG Tablet PO (03:19)
[2021-02-27] MEDS: 0.9% Normal Saline 1,000 ML 125 ML IV (03:19)
[2021-02-27 03:20] VITALS: BP 135/70; PULSE 64; RESP 16; TEMP 37.2; O2SAT 97
[2021-02-27 05:50] LABS: ALB/GLOB Ratio 0.7 RATIO (0.9-2.4); AST(SGOT) 12 U/L (15-37); Alanine Aminotransfer ALT/SGPT 50 U/L (13-56); Albumin, Serum 2.4 g/dL (3.2-5.0); Alkaline Phosphatase 91 U/L (45-117); Anion Gap 14 (5-15); BUN 73 mg/dL (7-18); BUN/Creat Ratio 20.4 RATIO (10-20); Calcium,Total 7.8 mg/dL (8.5-10.1); Chloride 107 mmol/L (98-107); Creatinine, Serum 3.57 mg/dL (0.55-1.02); EST Glomerular Filtration Rate 15 mL/min (>60); Est Glom Filt Rate - Afr Amer 19 mL/min (>60); Estimated Creatinine Clearance 18.02 ml/min; Globulin 3.6 g/dL (2.2-4.2); Glucose 94 mg/dL (74-106); Potassium 4.2 mmol/L (3.5-5.1); Sodium Level 141 mmol/L (136-145)
--- NOTE | 2021-02-27 07:11 | PN.OBGYN_ITS ---
Subjective Subjective Reports mild low back pain that is intermittent. Denies headache, vision changes, chest pain, shortness of breath, or other painfulness painfulness. Reports mild increase in lochia. Continues voiding without difficulty. Objective Data Objective Data Vital Signs: Vital Signs Temp Pulse Resp BP Pulse Ox 99.0 F 64 16 135/70 H 97 02/27/21 03:20 02/27/21 03:20 02/27/21 03:20 02/27/21 03:20 02/27/21 03:20 Oxygen Delivery Method Room Air Weight: 83.28 kg Body Mass Index (BMI) 32.5 Intake & Output: Intake and Output for Last 24 Hours 02/25/21 02/26/21 02/27/21 23:59 23:59 23:59 Intake Total 3912.92 / 3912.92 4233.33 / 4233.33 1866.67 / 1866.67 Output Total 6500 / 6500 6100 / 6100 2600 / 2600 Balance -2587.08 / -2587.08 -1866.67 / -1866.67 -733.33 / -733.33 Lab / Micro Data Result Diagrams: 02/26/21 04:00 02/27/21 05:25 Labs: Laboratory Results - last 24 hr 02/25/21 02/27/21 09:12 05:25 Sodium 141 Potassium 4.2 Chloride 107 Carbon Dioxide 20.0 L Anion Gap 14 BUN 73 H Creatinine 3.57 H Estim Creat Clear Calc 18.02 Est GFR (MDRD) Af Amer 19 L Est GFR (MDRD) Non-Af 15 L BUN/Creatinine Ratio 20.4 H Glucose 94 Calcium 7.8 L Total Bilirubin 0.70 AST 12 L ALT 50 Alkaline Phosphatase 91 Total Protein 6.0 L Albumin 2.4 L Globulin 3.6 Albumin/Globulin Ratio 0.7 L YOVANI Screen Negative RODGER-1 Antibody Not Reportable SS-A/Ro IgG Antibody Not Reportable SS-B/La IgG Antibody Not Reportable Sm (Hedrick) Antibody Not Reportable BUSINESS ANALYSIS PROFESSIONAL Antibody Not Reportable Scl-70 Scleroderma Ab Not Reportable Double Strand DNA Ab Not Reportable Centromere B Antibody Not Reportable Micro: Microbiology 02/25/21 02:25 Urine Catheter - Lopez Urine Culture - Preliminary Culture exhibits no growth. 02/24/21 17:00 Urine, Clean Catch Urine Culture - Final Presumptive E. coli Physical Exam Const alert, oriented x3 and no apparent distress Resp normal respiratory effort, normal air movement and clear to auscultation bilaterally Cardio regular rate, regular rhythm, S1 normal heart sound and S2 normal heart sound GI normal to inspection, nondistended, normoactive bowel sounds, soft to palpation, non-tender and non-distended GI Narrative: incision c/d/i and nontender no CVA tenderness Manual OB Exam: other lochia scant Uterus Palpation: uterus fundus firm Extremity no calf tenderness Assessment & Plan (1) Hypertension: QUALIFIERS: Hypertension type: unspecified Qualified Code(s): I10 - Essential (primary) hypertension PLAN: Blood pressure is appropriately controlled on labetalol. We will continue antihypertensive management per hospitalist, nephrology. (2) Pre-eclampsia: QUALIFIERS: Trimester: unspecified trimester Qualified Code(s): O14.90 - Unspecified pre-eclampsia, unspecified trimester PLAN: Status post magnesium Labs downtrending and patient asymptomatic Resolving hypermagnesemia Dispo planning (3) Hyperphosphatemia: PLAN: Sevelamer per Medicine (4) SUNIL (acute kidney injury): (5) ATN (acute tubular necrosis): PLAN: Creatinine lowering Renal input appreciated Will f/u recommendations further (6) S/P : COMMENT: 02/20/21 PLAN: No active issues (7) UTI (urinary tract infection): QUALIFIERS: Urinary tract infection type: acute pyelonephritis Qu alified Code(s): N10 - Acute pyelonephritis PLAN: Continue Augmentin (8) Hyponatremia: PLAN: Resolving dc NS
[2021-02-27 08:32] VITALS: BP 131/80; PULSE 65; RESP 16; TEMP 36.6
[2021-02-27] MEDS: SEVELAMER CARBONATE 800 MG TABLET 1600 MG PO (08:38)
--- NOTE | 2021-02-27 09:04 | PCM.PN.REN ---
Subjective Subjective appetite good, diuresing well without crandall. Creatinine improved today. Increased urine volumes from post ATN diuresis on iv fluids. Denies nausea, vomiting, shortness of breath. Objective Data Objective Data Vital Signs: Vital Signs Temp Pulse Resp BP Pulse Ox 97.9 F 65 16 131/80 H 97 02/27/21 08:32 02/27/21 08:32 02/27/21 08:32 02/27/21 08:32 02/27/21 03:20 Oxygen Delivery Method Room Air Weight: 83.28 kg Body Mass Index (BMI) 32.5 Intake & Output: Intake and Output for Last 24 Hours 02/25/21 02/26/21 02/27/21 23:59 23:59 23:59 Intake Total 3912.92 / 3912.92 4233.33 / 4233.33 1866.67 / 1866.67 Output Total 6500 / 6500 6100 / 6100 2600 / 2600 Balance -2587.08 / -2587.08 -1866.67 / -1866.67 -733.33 / -733.33 Lab / Micro Data Result Diagrams: 02/26/21 04:00 02/27/21 05:25 Labs: Laboratory Results - last 24 hr 02/25/21 02/27/21 09:12 05:25 Sodium 141 Potassium 4.2 Chloride 107 Carbon Dioxide 20.0 L Anion Gap 14 BUN 73 H Creatinine 3.57 H Estim Creat Clear Calc 18.02 Est GFR (MDRD) Af Amer 19 L Est GFR (MDRD) Non-Af 15 L BUN/Creatinine Ratio 20.4 H Glucose 94 Calcium 7.8 L Total Bilirubin 0.70 AST 12 L ALT 50 Alkaline Phosphatase 91 Total Protein 6.0 L Albumin 2.4 L Globulin 3.6 Albumin/Globulin Ratio 0.7 L YOVANI Screen Negative RODGER-1 Antibody Not Reportable SS-A/Ro IgG Antibody Not Reportable SS-B/La IgG Antibody Not Reportable Sm (Hedrick) Antibody Not Reportable TOOL AND PRODUCTION PLANNER Antibody Not Reportable Scl-70 Scleroderma Ab Not Reportable Double Strand DNA Ab Not Reportable Centromere B Antibody Not Reportable Micro: Microbiology 02/25/21 02:25 Urine Catheter - Crandall Urine Culture - Final Culture exhibits no growth. 02/24/21 17:00 Urine, Clean Catch Urine Culture - Final Presumptive E. coli Physical Exam Const alert, oriented x3 and no apparent distress Resp clear to auscultation bilaterally Cardio regular rate GI non-tender and non-distended GI Narrative: post Palpation: soft Extremity no clubbing, cyanosis or edema Neuro Neuro Narrative: no tremor Sensorium / Orientation: awake and alert Psych cooperative Assessment & Plan Assessment/Plan (1) SUNIL (acute kidney injury): PLAN: due to ATN recovering. Now with post ATN diuresis. Creatinine improved to 3.57. No biospy needed at this time since renal fxn improving. Watch for dehydration from post ATN diuresis. Check labs in 2 days and next week. Follow up with me in 1 week. JACE hospitalist, [employer]. (2) Pre-eclampsia: QUALIFIERS: Trimester: unspecified trimester Qualified Code(s): O14.90 - Unspecified pre-eclampsia, unspecified trimester PLAN: s/p csection delivery with hypertension, proteinuria, elevated transaminase. LFT's improving (3) Hypertension: QUALIFIERS: Hypertension type: unspecified Qualified Code(s): I10 - Essential (primary) hypertension PLAN: stable on labetalol. May not require once renal failure resolved (4) Hyperphosphatemia: PLAN: continue phos binders, sevelamer. Avoid dairy, tea. Check phos this Thursday and next week.
--- NOTE | 2021-02-27 09:06 | PCM.DC.BLA ---
Discharge Summary Date of Admission: 02/24/21 Date of Discharge: 02/27/21 Summary: Patient arrived with headache, elevated blood pressures and found to have elevated LFTs along with SUNIL. Found to have urinary retention after Lopez placement. Diagnosed with severe preeclampsia, started on magnesium and labetalol p.o. started. Later found to have a magnesium toxicity stop magnesium. Nephrology and hospitalist consulted. Suggested for IV hydration, nephrology started phosphorus binders. Beginning 02/26/2021 labs began to normalize and patient began to improve. Magnesium fell to normal range. creatinine improved urine output remained within normal limits and patient remained symptomatically improved blood pressure stable. Discharged home Physical Exam Const alert, oriented x3, no apparent distress and average body habitus HEENT normocephalic and moist oral mucous membranes Eyes PERRL Neck full ROM Lymph Lymphatic: no lymphadenopathy noted Resp normal respiratory effort, normal air movement, no retractions and no use of accessory muscles GI normal to inspection, nondistended, normoactive bowel sounds Extremity normal to inspection, full ROM and normal capillary refill Skin no rashes or lesions noted Psych mental status grossly normal, thought process normal, cooperative, affect normal and speech normal Meaningful Use Info Meaningful Use Diagnoses (Choose all that apply): None applicable Discharge Plan Admission Admit Date/Time: 02/24/21 17:25 Primary Reason for Your Visit: Severe preeclampsia Attending Provider: Jennifer Booth Primary Care Provider: Alina Ibarra Consulting Providers: Nishi Varghese ; Janes Gaming ; Sergio Thakur ; Tawana Polo Discharge Orders/Prescriptions Prescriptions: New labetalol 200 mg Tablet 200 mg PO BID 30 Days Qty: 60 RF: 0 amoxicillin-pot clavulanate 875-125 mg Tablet 875 mg PO Q12H 5 Days Qty: 9 RF: 0 enoxaparin 30 mg/0.3 mL Syringe 30 mg subcut DAILY 28 Days Qty: 8.4 RF: 0 sevelamer carbonate 800 mg Tablet 1,600 mg PO TIDCM 30 Days Qty: 180 RF: 0 Continued [id number] 1 mg Tablet 1 tab PO DAILY RF: 0 oxycodone 5 mg Tablet 5 mg PO Q6H PRN (Reason: pain) 5 Days Qty: 20 RF: 0 Discontinued ibuprofen 600 mg Tablet 600 mg PO Q8H PRN PRN (Reason: pain) Qty: 30 RF: 0 Referrals / Follow Up: Alina Ibarra PA [Primary Care Provider] - Disposition Disposition (needs filled in before D/C Order can be placed): Home, Self Care
[2021-02-27] MEDS: Enoxaparin 30 MG/0.3 ML Syringe SC (09:50)
--- NOTE | 2021-02-27 10:53 | NURSING ---
call made to Dr. Parish Saxena's office about patient's discharge prescriptions. Pt states that her pharmacy cannot get 2 of the medications at her pharmacy. Asked office for Dr. Saxena to call me bcak to see if these medications can be sent to [facility] pharmacy.
--- NOTE | 2021-02-27 11:10 | NURSING ---
Dr. Reyes to send prescription of Lovenox to [facility] pharmacy at this time. Paged Dr. Polo gasoline locomotive crane operator about second mediation. Waiting vp integration back
--- NOTE | 2021-02-27 11:13 | NURSING ---
Dr. Polo calls back. STates that she will send prescription to the retail pharmacy
[2021-02-27 11:54] VITALS: BP 153/88; PULSE 60; RESP 16; TEMP 36.8; O2SAT 97
--- NOTE | 2021-02-27 15:24 | NURSING ---
Called Dr. Parish Saxena to notify him of last BP of 158/88 before pt was Discharged. States that patient will be F/U in the office and that he since BP is less than 160/110 BP.
[2021-02-27 16:13] LABS: Myoglobin, Urine 3 ng/mL (0-13)
== END 2021-02-27 12:35 | disposition home or self-care (01) | DRG 776 ==
LOC: WPOUT 17:31 → WP 17:31
PROVIDERS: Family Medicine; Internal Medicine Nephrology; Obstetrics & Gynecology; Admitting Provider Obstetrics & Gynecology; PCP Physician Assistant; Visit Provider Obstetrics & Gynecology
DX: O14.95 Unspecified pre-eclampsia, complicating the puerperium (principal); N17.0 Acute kidney failure with tubular necrosis; E87.1 Hypo-osmolality and hyponatremia; O86.21 Infection of kidney following delivery; Z98.51 Tubal ligation status; O99.285 Endocrine, nutritional and metabolic diseases complicating the puerperium
CPT/HCPCS: 36415; 74176; 76770; 76856; 80053; 81001; 82150; 82436; 82565; 82570; 83615; 83690; 83735; 83874; 84100; 84133; 84156; 84300; 85025; 85027; 85610; 85730; 86038; 86225; 86235; 86850; 86900; 86901; 87086; 87088; 87186; J7030; J7120; J2405

== ENCOUNTER → 2021-03-01 10:51 | Outpatient (CLI) | payer SELFPAY ==
[2021-02-24 16:28] VITALS: BMI 32.5
[2021-03-01 12:07] LABS: Albumin, Serum 3.4 g/dL (3.2-5.0); BUN 31 mg/dL (7-18); BUN/Creat Ratio 27.7 RATIO (10-20); Calcium,Total 8.9 mg/dL (8.5-10.1); Chloride 104 mmol/L (98-107); Creatinine, Serum 1.12 mg/dL (0.55-1.02); EST Glomerular Filtration Rate 58 mL/min (>60); Est Glom Filt Rate - Afr Amer 71 mL/min (>60); Glucose 81 mg/dL (74-106); Phosphorus 4.7 mg/dL (2.5-4.9); Potassium 4.1 mmol/L (3.5-5.1); Sodium Level 136 mmol/L (136-145)
== END ==
PROVIDERS: PCP Physician Assistant; Visit Provider Internal Medicine Nephrology
DX: N17.1 Acute kidney failure with acute cortical necrosis (principal)
CPT/HCPCS: 36415; 80069

== ENCOUNTER → 2021-03-07 09:23 | Outpatient (CLI) | payer SELFPAY ==
[2021-02-24 16:28] VITALS: BMI 32.5
[2021-03-07 12:33] LABS: Albumin, Serum 3.4 g/dL (3.2-5.0); BUN 14 mg/dL (7-18); BUN/Creat Ratio 17.5 RATIO (10-20); Calcium,Total 8.4 mg/dL (8.5-10.1); Chloride 108 mmol/L (98-107); EST Glomerular Filtration Rate 86 mL/min (>60); Est Glom Filt Rate - Afr Amer 104 mL/min (>60); Glucose 80 mg/dL (74-106); Phosphorus 3.1 mg/dL (2.5-4.9); Potassium 3.8 mmol/L (3.5-5.1); Sodium Level 138 mmol/L (136-145)
== END ==
PROVIDERS: PCP Physician Assistant; Visit Provider Internal Medicine Nephrology
DX: N17.0 Acute kidney failure with tubular necrosis (principal)
CPT/HCPCS: 36415; 80069